=== PATIENT | female | born 1950 | race Caucasian/White ===

== ENCOUNTER → 2016-10-16 | Outpatient (REF) | payer MEDICARE, MEDICAID ==
[~2016-10-16] MED LIST: /MOM400 PO; ALLO300T2 PO; AMLO2.5T PO; CITA40TA PO; DOCU10ELUD PO; NIFE15CA PO; OMEP20CA3 PO; TYLE325T5 PO; VITA200015 PO; Wellbutrin PO; [UNRECOGNIZED DRUG - OTHER] PO
[2016-10-16 12:47] LABS: ALBUMIN 3.5 GM/DL (3.2-5.2); ALBUMIN/GLOBULIN RATIO 0.9 (1.00-1.93); BILIRUBIN,TOTAL 0.6 MG/DL (0.2-1.0); CALCIUM LEVEL 8.7 MG/DL (8.8-10.2); CREATININE FOR GFR 1.63 MG/DL (0.55-1.02); FREE T4 1.17 NG/DL (0.76-1.46); GLOMERULAR FILTRATION RATE 33.7 (>45); POTASSIUM SERUM 4.4 MEQ/L (3.5-5.1); TOTAL PROTEIN 7.4 GM/DL (6.4-8.2)
== END ==
LOC: M SFHCPLAZ 09:19
PROVIDERS: ATTEND Nurse Practitioner Family
DX: E11.9 Type 2 diabetes mellitus without complications (principal); E03.9 Hypothyroidism, unspecified

== ENCOUNTER → 2016-10-16 | Outpatient (REF) | payer MEDICARE, MEDICAID ==
[2016-10-16 12:53] LABS: BASO % 0.2 % (0.0-1.0); EOS # 0.1 K/mm3 (0.0-0.50); EOS % 2.1 % (0.0-3.0); LARGE UNSTAINED CELL # 0.1 K/mm3 (0.0-0.4); LARGE UNSTAINED CELL % 1.6 % (0.0-4.0); LYMPH # 1.1 K/mm3 (1.5-4.5); LYMPH % 24.9 % (24.0-44.0); MEAN CORPUSCULAR HEMOGLOBIN 32.1 pg (27.0-33.0); MEAN CORPUSCULAR HGB CONC 33.8 g/dl (32.0-36.5); MEAN CORPUSCULAR VOLUME 94.9 fl (80.0-96.0); MONO # 0.2 K/mm3 (0.0-0.8); MONO % 5.2 % (0.0-5.0); NEUTROPHILS # 2.9 K/mm3 (1.8-7.7); PLATELET COUNT, AUTOMATED 115 k/mm3 (150-450); RED CELL DISTRIBUTION WIDTH 12.9 % (11.5-14.5); WHITE BLOOD COUNT 4.4 K/mm3 (4.0-10.0)
[2016-10-16 13:02] LABS: ALBUMIN 3.5 GM/DL (3.2-5.2); CREATININE FOR GFR 1.69 MG/DL (0.55-1.02); GLOMERULAR FILTRATION RATE 32.3 (>45); MAGNESIUM LEVEL 2.2 MG/DL (1.8-2.4); PHOSPHORUS LEVEL 2.1 MG/DL (2.5-4.9); POTASSIUM SERUM 4.7 MEQ/L (3.5-5.1); URIC ACID 9.3 MG/DL (2.6-6.0)
== END ==
LOC: M LABDRAWP 12:17
PROVIDERS: ATTEND Nurse Practitioner Family
DX: N18.3 Chronic kidney disease, stage 3 (moderate) (principal); N25.81 Secondary hyperparathyroidism of renal origin; E83.42 Hypomagnesemia; D63.1 Anemia in chronic kidney disease; M10.9 Gout, unspecified

== ENCOUNTER → 2016-10-30 | Outpatient (CLI) | payer MEDICARE ==
--- NOTE | 2016-10-30 11:03 | REP ---
LIVER ULTRASOUND: 10/30/[address] abdomen pelvis without contrast 06/25/2014. CLINICAL HISTORY: Elevated LFTs. Sonographic evaluation of the liver shows a somewhat heterogeneous coarse echotexture throughout. There is no discrete hepatic mass, intrahepatic biliary dilatation nor adjacent ascites. The gallbladder measures 9.1 x 3 x 3.4 cm, has a wall thickness borderline at 2.9 cm. However, there is a mobile, shadowing stone present which moves to the dependent portion of the gallbladder or its neck on every image. It measures up to 1.7 cm. Common duct is 2.6 mm and is without a filling defect or dilatation. Limited view of the pancreas due to gas shadowing. The right kidney measures 8.8 x 4.4 x 3.3 cm without hydronephrosis or cortical thinning and overall atrophy noted as on CT over 2 years ago. IMPRESSION: 1. Cholelithiasis with a mobile 1.7 cm calcified gallstone. Wall thickness up to 2.9 mm, but no pericholecystic fluid. No sonographic Marquez sign. 2. The liver is mildly heterogeneous in echotexture throughout with coarsened appearance of the parenchymal echoes suggested some underlying chronic liver disease. 3. No intrahepatic biliary dilatation, common duct dilatation with its diameter, maximum 2.6 in the dawn hepatis. 4. Limited evaluation of the pancreas with pancreatic duct 1.7 mm and normal. The right kidney shows atrophy in overall length and cortical thickness. This is as on CT over 2 years ago.
== END ==
LOC: M WHC 09:29
PROVIDERS: ATTEND Nurse Practitioner Family
DX: R74.8 Abnormal levels of other serum enzymes (principal)

== ENCOUNTER → 2017-03-26 | Outpatient (CLI) | payer MEDICARE, MEDICAID ==
[2017-03-26 13:50] LABS: MEAN CORPUSCULAR HEMOGLOBIN 32.7 pg (27.0-33.0); MEAN CORPUSCULAR HGB CONC 32.4 g/dl (32.0-36.5); MEAN CORPUSCULAR VOLUME 101.1 fl (80.0-96.0); RED CELL DISTRIBUTION WIDTH 14.2 % (11.5-14.5)
[2017-03-26 14:01] LABS: ALBUMIN 3.7 GM/DL (3.2-5.2); CALCIUM LEVEL 9.2 MG/DL (8.8-10.2); CREATININE FOR GFR 1.91 MG/DL (0.55-1.02); GLOMERULAR FILTRATION RATE 28.1 (>45); PHOSPHORUS LEVEL 3.7 MG/DL (2.5-4.9); POTASSIUM SERUM 4.9 MEQ/L (3.5-5.1); URIC ACID 11.8 MG/DL (2.6-6.0)
== END ==
LOC: M WUC 09:10
PROVIDERS: ATTEND Internal Medicine Nephrology
DX: N18.3 Chronic kidney disease, stage 3 (moderate) (principal); N20.0 Calculus of kidney; M10.9 Gout, unspecified; E83.42 Hypomagnesemia; N25.81 Secondary hyperparathyroidism of renal origin

== ENCOUNTER → 2017-03-29 | Outpatient (CLI) | payer MEDICARE, MEDICAID ==
--- NOTE | 2017-03-29 15:18 | REP ---
CHEST X-RAY: Two views. HISTORY: Short of breath and low back pain. Comparison chest x-ray November 08, 2015. FINDINGS: There is an old healed fracture of the right posterior 5th rib unchanged. There are degenerative changes in the thoracic spine. The lungs are well inflated and clear. The pleural angles are sharp. Heart size is normal. Pulmonary vasculature is not increased. IMPRESSION: Degenerative changes in the thoracic spine. Otherwise no acute disease. Signed by Mani Bajwa MD 03/29/2017 04:25 P
--- NOTE | 2017-03-30 15:53 | REP ---
Lumbar spine series: Five views. History: Lumbago with sciatica left-side. Comparison study January 05, 2016. Findings: Lumbar vertebral body heights are preserved. Alignment is normal. There is exuberant osteophyte formation diffusely in the lumbar spine unchanged from the January 24, 2016 prior studies. These osteophytes are most pronounced at L4-5 and L3-4. There is mild disc space narrowing at L4-5. Sacrum and SI joints are intact. There is some sclerosis and abutment at the spinous processes between L4 and L5 and L3 and L4. This is unchanged. There is facet osteoarthritic hypertrophy at L4-5 and to some degree L3-4. Psoas margins are symmetric. Impression: Diffuse degenerative disc disease moderate in degree. Abutment of the spinous processes at L3-4 and L4-5 also noted. Signed by Mani Bajwa MD 03/30/2017 04:59 P
== END ==
LOC: M SMT 14:08
PROVIDERS: ATTEND Nurse Practitioner Family
DX: R06.02 Shortness of breath (principal); M51.34 Other intervertebral disc degeneration, thoracic region
CPT/HCPCS: 71020; 72110; 87070; 87077; 87186; G0463

== ENCOUNTER → 2017-04-17 | Outpatient (REF) | payer MEDICARE, MEDICAID ==
[2017-04-17 11:54] LABS: ALBUMIN 3.8 GM/DL (3.2-5.2); ALBUMIN/GLOBULIN RATIO 0.97 (1.00-1.93); BILIRUBIN,TOTAL 1.2 MG/DL (0.2-1.0); CALCIUM LEVEL 9.6 MG/DL (8.8-10.2); CREATININE FOR GFR 2.08 MG/DL (0.55-1.02); FREE T4 1.21 NG/DL (0.76-1.46); GLOMERULAR FILTRATION RATE 25.4 (>45); TOTAL PROTEIN 7.7 GM/DL (6.4-8.2)
[2017-04-17 11:55] LABS: POTASSIUM SERUM 5.3 MEQ/L (3.5-5.1)
== END ==
LOC: M SFHCPLAZ 08:27
PROVIDERS: ATTEND Nurse Practitioner Family
DX: E11.9 Type 2 diabetes mellitus without complications (principal); E03.9 Hypothyroidism, unspecified; E78.2 Mixed hyperlipidemia
CPT/HCPCS: 36415; 80053; 80061; 82043; 83036; 84439; 84443; G0463

== ENCOUNTER → 2017-06-25 | Outpatient (CLI) | payer MEDICARE, MEDICAID ==
[2017-06-25 09:50] LABS: BASO % 0.7 % (0.0-1.0); EOS # 0.2 10^3/uL (0.0-0.50); IMMATURE GRANULOCYTE % 0.4 % (0-0); LYMPH # 1.6 10^3/uL (1.5-4.5); LYMPH % 29.9 % (24.0-44.0); MEAN CORPUSCULAR HEMOGLOBIN 32.2 pg (27.0-33.0); MEAN CORPUSCULAR HGB CONC 32.2 g/dl (32.0-36.5); MEAN CORPUSCULAR VOLUME 100.3 fl (80.0-96.0); MONO # 0.4 10^3/uL (0.0-0.8); MONO % 7.8 % (0.0-5.0); NEUTROPHILS # 3.1 10^3/uL (1.8-7.7); NEUTROPHILS % 58.2 % (36.0-66.0); PLATELET COUNT, AUTOMATED 125 10^3/uL (150-450); RED CELL DISTRIBUTION WIDTH 14.3 % (11.5-14.5); WHITE BLOOD COUNT 5.4 10^3/uL (4.0-10.0)
[2017-06-25 10:33] LABS: ALBUMIN 3.7 GM/DL (3.2-5.2); CALCIUM LEVEL 9.8 MG/DL (8.8-10.2); CREATININE FOR GFR 2.19 MG/DL (0.55-1.02); GLOMERULAR FILTRATION RATE 23.9 (>45); MAGNESIUM LEVEL 1.8 MG/DL (1.8-2.4); PHOSPHORUS LEVEL 3.7 MG/DL (2.5-4.9); POTASSIUM SERUM 4.2 MEQ/L (3.5-5.1)
== END ==
LOC: M LAB 09:02
PROVIDERS: ATTEND Internal Medicine Nephrology
DX: N18.3 Chronic kidney disease, stage 3 (moderate) (principal)

== ENCOUNTER → 2017-07-09 | Outpatient (CLI) | payer MEDICARE, MEDICAID ==
--- NOTE | 2017-07-10 07:45 | REP ---
RENAL ULTRASOUND: CLINICAL: Chronic renal disease, stage IV. TECHNIQUE: Real-time grayscale ultrasound examination using curved array transducer. FINDINGS: The kidneys are normal in reniform shape with increased parenchymal echogenicity but no evidence for hydronephrosis, nephrolithiasis, or renal mass lesion. The right kidney measures 8.5 x 5.0 x 3.6 cm and includes increased central sinus fat consistent with chronic medical renal disease. The left kidney measures 13.1 x 7.2 x 5.4 cm with a 4.1 x 3.0 x 2.0 cm lower pole simple cyst. The bladder is unremarkable as visualized. IMPRESSION: Evidence for chronic medical renal disease including asymmetric atrophy to the right kidney and 4 cm simple left renal cyst. Signed by Joshua Escalante MD 07/13/2017 07:08 A
== END ==
LOC: M RAD 08:11
PROVIDERS: ATTEND Internal Medicine Nephrology
DX: N18.4 Chronic kidney disease, stage 4 (severe) (principal)

== ENCOUNTER → 2017-07-17 | Outpatient (REF) | payer MEDICARE, MEDICAID ==
[2017-07-17 12:57] LABS: ALBUMIN 3.5 GM/DL (3.2-5.2); ALBUMIN/GLOBULIN RATIO 0.88 (1.00-1.93); BILIRUBIN,TOTAL 0.8 MG/DL (0.2-1.0); CALCIUM LEVEL 9.5 MG/DL (8.8-10.2); CREATININE FOR GFR 1.97 MG/DL (0.55-1.02); FREE T4 1.21 NG/DL (0.76-1.46); POTASSIUM SERUM 5.1 MEQ/L (3.5-5.1); TOTAL PROTEIN 7.5 GM/DL (6.4-8.2)
== END ==
LOC: M SFHCPLAZ 08:14
PROVIDERS: ATTEND Nurse Practitioner Family
DX: E03.9 Hypothyroidism, unspecified (principal); E11.9 Type 2 diabetes mellitus without complications; E78.2 Mixed hyperlipidemia

== ENCOUNTER → 2017-08-03 | Outpatient (CLI) | payer MEDICARE, MEDICAID | LOC: M WHC 09:32 | DX: Z12.31 Encounter for screening mammogram for malignant neoplasm of breast (principal); Z78.0 Asymptomatic menopausal state; Z80.3 Family history of malignant neoplasm of breast | CPT/HCPCS: G0202 ==

== ENCOUNTER → 2017-09-05 | Outpatient (CLI) | payer MEDICARE, MEDICAID ==
[2017-09-05 11:05] LABS: APPEARANCE, URINE MANUAL CLEAR (CLEAR); COLOR, URINE MANUAL LT YELLOW (YELLOW)
[2017-09-05 11:06] LABS: BILIRUBIN, URINE MANUAL NEGATIVE (NEGATIVE); BLOOD URINE MANUAL NEGATIVE (NEGATIVE); GLUCOSE, URINE (UA) MANUAL NEGATIVE (NEGATIVE); KETONE, URINE MANUAL NEGATIVE (NEGATIVE); LEUKOCYTE ESTERASE, URINE MAN NEGATIVE (NEGATIVE); MICROSCOPIC INDICATED? MAN NO (NO); NITRITE, URINE MANUAL NEGATIVE (NEGATIVE); PROTEIN, URINE MANUAL NEGATIVE (NEGATIVE); UROBILINOGEN, URINE MANUAL NORMAL (NORMAL)
[2017-09-05 11:11] LABS: BASO % 0.8 % (0.0-1.0); EOS # 0.1 10^3/uL (0.0-0.50); EOS % 1.5 % (0.0-3.0); HEMATOCRIT 40.4 % (36.0-47.0); IMMATURE GRANULOCYTE % 0.2 % (0-0); LYMPH # 1.6 10^3/uL (1.5-4.5); LYMPH % 30.7 % (24.0-44.0); MEAN CORPUSCULAR HEMOGLOBIN 31.9 pg (27.0-33.0); MEAN CORPUSCULAR HGB CONC 32.2 g/dl (32.0-36.5); MONO # 0.4 10^3/uL (0.0-0.8); MONO % 8.1 % (0.0-5.0); NEUTROPHILS # 3.1 10^3/uL (1.8-7.7); NEUTROPHILS % 58.7 % (36.0-66.0); PLATELET COUNT, AUTOMATED 108 10^3/uL (150-450); RED BLOOD COUNT 4.08 10^6/uL (4.00-5.40); RED CELL DISTRIBUTION WIDTH 13.5 % (11.5-14.5); WHITE BLOOD COUNT 5.2 10^3/uL (4.0-10.0)
[2017-09-05 11:30] LABS: ALBUMIN 3.8 GM/DL (3.2-5.2); ANION GAP 7 MEQ/L (8-16); BLOOD UREA NITROGEN 28 MG/DL (7-18); CALCIUM LEVEL 9.7 MG/DL (8.8-10.2); CARBON DIOXIDE LEVEL 30 MEQ/L (21-32); CHLORIDE LEVEL 106 MEQ/L (98-107); CREATININE FOR GFR 2.01 MG/DL (0.55-1.30); GLOMERULAR FILTRATION RATE 26.4 (>45); GLUCOSE, FASTING 148 MG/DL (70-100); PHOSPHORUS LEVEL 3.1 MG/DL (2.5-4.9); POTASSIUM SERUM 4.8 MEQ/L (3.5-5.1); SODIUM LEVEL 143 MEQ/L (136-145); URIC ACID 8.7 MG/DL (2.6-6.0)
[2017-09-05 11:36] LABS: PTH INTACT 70.9 PG/ML (14.0-72.0)
== END ==
LOC: M LAB 10:17
DX: N18.4 Chronic kidney disease, stage 4 (severe) (principal); M10.9 Gout, unspecified
CPT/HCPCS: 84550

== ENCOUNTER → 2017-10-19 | Outpatient (REF) | payer MEDICARE, MEDICAID ==
[2017-10-19 11:14] LABS: ALBUMIN 3.7 GM/DL (3.2-5.2); ALBUMIN/GLOBULIN RATIO 0.95 (1.00-1.93); ALKALINE PHOSPHATASE 77 U/L (45-117); ALT/SGPT 32 U/L (12-78); ANION GAP 10 MEQ/L (8-16); AST/SGOT 33 U/L (7-37); BLOOD UREA NITROGEN 41 MG/DL (7-18); CALCIUM LEVEL 9.2 MG/DL (8.8-10.2); CARBON DIOXIDE LEVEL 28 MEQ/L (21-32); CHLORIDE LEVEL 106 MEQ/L (98-107); CREATININE FOR GFR 1.86 MG/DL (0.55-1.30); GLOMERULAR FILTRATION RATE 28.9 (>45); GLUCOSE, FASTING 151 MG/DL (70-100); SODIUM LEVEL 144 MEQ/L (136-145); TOTAL PROTEIN 7.6 GM/DL (6.4-8.2)
[2017-10-19 11:29] LABS: CREATININE, URINE 72.4 MG/DL; MAU/CREAT RATIO 225.1 MCG/MG (0.0-30.0)
[2017-10-19 11:30] LABS: ESTIMATED AVERAGE GLUCOSE 146 MG/DL (60-110); HEMOGLOBIN A1c 6.7 %
== END ==
LOC: M SFHCPLAZ 08:42
DX: E03.9 Hypothyroidism, unspecified (principal); E11.9 Type 2 diabetes mellitus without complications
CPT/HCPCS: 84443

== ENCOUNTER → 2017-12-11 | Outpatient (CLI) | payer MEDICARE, MEDICAID ==
[2017-12-11 11:21] LABS: APPEARANCE, URINE CLEAR (CLEAR); BACTERIA, URINE AUTO NEGATIVE (NEGATIVE); BILIRUBIN, URINE AUTO NEGATIVE (NEGATIVE); BLOOD, URINE BLOOD NEGATIVE (NEGATIVE); COLOR, URINE YELLOW (YELLOW); GLUCOSE, URINE (UA) AUTO NEGATIVE (NEGATIVE); KETONE, URINE AUTO NEGATIVE (NEGATIVE); LEUKOCYTE ESTERASE, URINE AUTO NEGATIVE (NEGATIVE); NITRITE, URINE AUTO NEGATIVE (NEGATIVE); PROTEIN, URINE AUTO 2+ mg/dL (NEGATIVE); RBC, URINE AUTO 3 /HPF (0-3); SPECIFIC GRAVITY URINE AUTO 1.013 (1.002-1.035); SQUAMOUS EPITHELIAL CELL UR AU 1 /HPF (0-6); UROBILINOGEN, URINE AUTO 0.2 mg/dL (0.0-2.0); WBC, URINE AUTO 1 /HPF (0-3)
[2017-12-11 11:25] LABS: ALBUMIN 3.5 GM/DL (3.2-5.2); ANION GAP 6 MEQ/L (8-16); BLOOD UREA NITROGEN 28 MG/DL (7-18); CALCIUM LEVEL 9.6 MG/DL (8.8-10.2); CARBON DIOXIDE LEVEL 27 MEQ/L (21-32); CHLORIDE LEVEL 110 MEQ/L (98-107); CREATININE FOR GFR 1.67 MG/DL (0.55-1.30); GLOMERULAR FILTRATION RATE 32.7 (>45); GLUCOSE, FASTING 182 MG/DL (70-100); PHOSPHORUS LEVEL 2.8 MG/DL (2.5-4.9); POTASSIUM SERUM 4.8 MEQ/L (3.5-5.1); SODIUM LEVEL 143 MEQ/L (136-145); URIC ACID 6.7 MG/DL (2.6-6.0)
[2017-12-11 11:35] LABS: TOTAL 25(OH) VITAMIN D 25.6 NG/ML (30.0-100.0)
[2017-12-11 11:36] LABS: PTH INTACT 49.3 PG/ML (18.5-88.0)
== END ==
LOC: M LAB 10:35
DX: N18.4 Chronic kidney disease, stage 4 (severe) (principal)
CPT/HCPCS: 84550

== ENCOUNTER → 2018-01-28 | Outpatient (REF) | payer MEDICARE, MEDICAID ==
[2018-01-28 13:35] LABS: BLOOD UREA NITROGEN 50 MG/DL (7-18)
[2018-01-28 13:35] LABS: CREATININE FOR GFR 2.04 MG/DL (0.55-1.30); GLOMERULAR FILTRATION RATE 25.9 (>45)
== END ==
LOC: M SFHCWAGY 08:35
DX: Z91.89 Other specified personal risk factors, not elsewhere classified (principal)
CPT/HCPCS: 82565

== ENCOUNTER → 2018-02-15 | Outpatient (REF) | payer MEDICARE, MEDICAID ==
[2018-02-15 12:18] LABS: HEMATOCRIT 35.9 % (36.0-47.0); HEMOGLOBIN 11.7 g/dl (12.0-15.5); MEAN CORPUSCULAR HEMOGLOBIN 32.7 pg (27.0-33.0); MEAN CORPUSCULAR HGB CONC 32.6 g/dl (32.0-36.5); MEAN CORPUSCULAR VOLUME 100.3 fl (80.0-96.0); RED BLOOD COUNT 3.58 10^6/uL (4.00-5.40); WHITE BLOOD COUNT 4.1 10^3/uL (4.0-10.0)
[2018-02-15 12:45] LABS: IMMATURE PLATELET FRACTION % 3.7 % (0.0-9.6); PLATELET COUNT, AUTOMATED 72 10^3/uL (150-450)
[2018-02-15 13:06] LABS: ALBUMIN 3.4 GM/DL (3.2-5.2); ALBUMIN/GLOBULIN RATIO 0.94 (1.00-1.93); ALKALINE PHOSPHATASE 77 U/L (45-117); ALT/SGPT 35 U/L (12-78); ANION GAP 9 MEQ/L (8-16); AST/SGOT 23 U/L (7-37); BILIRUBIN,TOTAL 0.8 MG/DL (0.2-1.0); BLOOD UREA NITROGEN 45 MG/DL (7-18); CALCIUM LEVEL 9.1 MG/DL (8.8-10.2); CARBON DIOXIDE LEVEL 30 MEQ/L (21-32); CHLORIDE LEVEL 107 MEQ/L (98-107); CHOLESTEROL LEVEL 168 MG/DL (<200); CHOLESTEROL RISK RATIO 2.024 (<5); CREATININE FOR GFR 1.94 MG/DL (0.55-1.30); FREE T4 1.53 NG/DL (0.76-1.46); GLOMERULAR FILTRATION RATE 27.5 (>45); GLUCOSE, FASTING 139 MG/DL (70-100); HDL CHOLESTEROL 83 MG/DL (>40); LDL CHOLESTEROL 64.2 MG/DL (<100); NON-HDL-C 85 MG/DL; PHOSPHORUS LEVEL 3.1 MG/DL (2.5-4.9); SODIUM LEVEL 146 MEQ/L (136-145); THYROID STIMULATING HORMONE 0.096 uIU/ML (0.358-3.740); TRIGLYCERIDES LEVEL 104 MG/DL (<150)
[2018-02-15 13:07] LABS: ESTIMATED AVERAGE GLUCOSE 157 MG/DL (60-110); HEMOGLOBIN A1c 7.1 %
== END ==
LOC: M SFHCPLAZ 09:30
DX: E11.9 Type 2 diabetes mellitus without complications (principal); E03.9 Hypothyroidism, unspecified; E78.2 Mixed hyperlipidemia; N18.3 Chronic kidney disease, stage 3 (moderate)
CPT/HCPCS: 84443

== ENCOUNTER → 2018-02-15 | Outpatient (REF) | payer MEDICARE, MEDICAID ==
[2018-02-15 12:38] LABS: APPEARANCE, URINE CLEAR (CLEAR); BACTERIA, URINE AUTO NEGATIVE (NEGATIVE); BILIRUBIN, URINE AUTO NEGATIVE (NEGATIVE); BLOOD, URINE BLOOD NEGATIVE (NEGATIVE); COLOR, URINE YELLOW (YELLOW); GLUCOSE, URINE (UA) AUTO NEGATIVE (NEGATIVE); KETONE, URINE AUTO NEGATIVE (NEGATIVE); LEUKOCYTE ESTERASE, URINE AUTO NEGATIVE (NEGATIVE); NITRITE, URINE AUTO NEGATIVE (NEGATIVE); PROTEIN, URINE AUTO 1+ mg/dL (NEGATIVE); RBC, URINE AUTO 1 /HPF (0-3); SPECIFIC GRAVITY URINE AUTO 1.012 (1.002-1.035); SQUAMOUS EPITHELIAL CELL UR AU 1 /HPF (0-6); UROBILINOGEN, URINE AUTO 0.2 mg/dL (0.0-2.0); WBC, URINE AUTO 1 /HPF (0-3)
[2018-02-15 20:24] LABS: ALBUMIN 3.5 GM/DL (3.2-5.2); ANION GAP 10 MEQ/L (8-16); BLOOD UREA NITROGEN 48 MG/DL (7-18); CALCIUM LEVEL 8.9 MG/DL (8.8-10.2); CARBON DIOXIDE LEVEL 28 MEQ/L (21-32); CHLORIDE LEVEL 108 MEQ/L (98-107); CREATININE FOR GFR 1.99 MG/DL (0.55-1.30); GLOMERULAR FILTRATION RATE 26.7 (>45); GLUCOSE, FASTING 142 MG/DL (70-100); PHOSPHORUS LEVEL 3.1 MG/DL (2.5-4.9); POTASSIUM SERUM 5.1 MEQ/L (3.5-5.1); SODIUM LEVEL 146 MEQ/L (136-145)
[2018-02-15 20:29] LABS: HEMATOCRIT 36.4 % (36.0-47.0); HEMOGLOBIN 11.7 g/dl (12.0-15.5); MEAN CORPUSCULAR HEMOGLOBIN 32.6 pg (27.0-33.0); MEAN CORPUSCULAR HGB CONC 32.1 g/dl (32.0-36.5); MEAN CORPUSCULAR VOLUME 101.4 fl (80.0-96.0); RED BLOOD COUNT 3.59 10^6/uL (4.00-5.40); RED CELL DISTRIBUTION WIDTH 14.2 % (11.5-14.5); WHITE BLOOD COUNT 4.2 10^3/uL (4.0-10.0)
[2018-02-15 20:31] LABS: PLATELET COUNT, AUTOMATED 79 10^3/uL (150-450)
== END ==
LOC: M LABDRAWP 12:13
DX: N18.3 Chronic kidney disease, stage 3 (moderate) (principal)

== ENCOUNTER → 2018-04-03 | Outpatient (REF) | payer MEDICARE, MEDICAID ==
[2018-04-03 13:12] LABS: FREE T4 1.29 NG/DL (0.76-1.46); THYROID STIMULATING HORMONE 0.483 uIU/ML (0.358-3.740)
== END ==
LOC: M SFHCPLAZ 09:15
DX: E03.9 Hypothyroidism, unspecified (principal)
CPT/HCPCS: 84443

== ENCOUNTER → 2018-05-29 | Outpatient (CLI) | payer MEDICARE, MEDICAID ==
[2018-05-29 13:29] LABS: BASO % 0.4 % (0.0-1.0); EOS # 0.1 10^3/uL (0.0-0.50); EOS % 1.9 % (0.0-3.0); HEMATOCRIT 38.7 % (36.0-47.0); HEMOGLOBIN 12.6 g/dl (12.0-15.5); IMMATURE GRANULOCYTE % 0.2 % (0-3.0); LYMPH # 1.5 10^3/uL (1.5-4.5); LYMPH % 28.8 % (24.0-44.0); MEAN CORPUSCULAR HEMOGLOBIN 32.8 pg (27.0-33.0); MEAN CORPUSCULAR HGB CONC 32.6 g/dl (32.0-36.5); MEAN CORPUSCULAR VOLUME 100.8 fl (80.0-96.0); MONO # 0.5 10^3/uL (0.0-0.8); MONO % 8.9 % (0.0-5.0); NEUTROPHILS # 3.1 10^3/uL (1.8-7.7); NEUTROPHILS % 59.8 % (36.0-66.0); RED BLOOD COUNT 3.84 10^6/uL (4.00-5.40); RED CELL DISTRIBUTION WIDTH 14.4 % (11.5-14.5); WHITE BLOOD COUNT 5.1 10^3/uL (4.0-10.0)
[2018-05-29 13:51] LABS: ALBUMIN 3.8 GM/DL (3.2-5.2); ANION GAP 9 MEQ/L (8-16); BLOOD UREA NITROGEN 55 MG/DL (7-18); CALCIUM LEVEL 9.4 MG/DL (8.8-10.2); CARBON DIOXIDE LEVEL 26 MEQ/L (21-32); CHLORIDE LEVEL 111 MEQ/L (98-107); CREATININE FOR GFR 1.82 MG/DL (0.55-1.30); GLOMERULAR FILTRATION RATE 29.6 (>45); GLUCOSE, FASTING 144 MG/DL (70-100); MAGNESIUM LEVEL 1.9 MG/DL (1.8-2.4); PHOSPHORUS LEVEL 3.8 MG/DL (2.5-4.9); POTASSIUM SERUM 4.8 MEQ/L (3.5-5.1); SODIUM LEVEL 146 MEQ/L (136-145); URIC ACID 6.8 MG/DL (2.6-6.0)
[2018-05-29 14:00] LABS: APPEARANCE, URINE CLEAR (CLEAR); BACTERIA, URINE AUTO NEGATIVE (NEGATIVE); BILIRUBIN, URINE AUTO NEGATIVE (NEGATIVE); BLOOD, URINE BLOOD NEGATIVE (NEGATIVE); COLOR, URINE YELLOW (YELLOW); GLUCOSE, URINE (UA) AUTO NEGATIVE (NEGATIVE); GRANULAR CAST, URINE AUTO 3 /LPF; KETONE, URINE AUTO NEGATIVE (NEGATIVE); LEUKOCYTE ESTERASE, URINE AUTO NEGATIVE (NEGATIVE); NITRITE, URINE AUTO NEGATIVE (NEGATIVE); PROTEIN, URINE AUTO 2+ mg/dL (NEGATIVE); RBC, URINE AUTO 0 /HPF (0-3); SPECIFIC GRAVITY URINE AUTO 1.014 (1.002-1.035); SQUAMOUS EPITHELIAL CELL UR AU 0 /HPF (0-6); UROBILINOGEN, URINE AUTO 0.2 mg/dL (0.0-2.0); WBC, URINE AUTO 0 /HPF (0-3)
[2018-05-29 14:19] LABS: PLATELET COUNT, AUTOMATED 85 10^3/uL (150-450)
[2018-05-29 14:20] LABS: IMMATURE PLATELET FRACTION % 2.8 % (0.0-9.6)
== END ==
LOC: M WUC 10:34
DX: N18.4 Chronic kidney disease, stage 4 (severe) (principal); N20.0 Calculus of kidney; N25.81 Secondary hyperparathyroidism of renal origin
CPT/HCPCS: 83735

== ENCOUNTER → 2018-07-04 | Outpatient (REF) | payer MEDICARE, MEDICAID ==
[2018-07-04 13:26] LABS: ANION GAP 10 MEQ/L (8-16); BLOOD UREA NITROGEN 57 MG/DL (7-18); CALCIUM LEVEL 9.1 MG/DL (8.8-10.2); CARBON DIOXIDE LEVEL 28 MEQ/L (21-32); CHLORIDE LEVEL 107 MEQ/L (98-107); CREATININE FOR GFR 2.17 MG/DL (0.55-1.30); FREE T4 1.42 NG/DL (0.76-1.46); GLOMERULAR FILTRATION RATE 24.1 (>45); GLUCOSE, FASTING 156 MG/DL (70-100); POTASSIUM SERUM 4.4 MEQ/L (3.5-5.1); SODIUM LEVEL 145 MEQ/L (136-145); THYROID STIMULATING HORMONE 0.948 uIU/ML (0.358-3.740)
[2018-07-04 15:26] LABS: ESTIMATED AVERAGE GLUCOSE 137 MG/DL (60-110); HEMOGLOBIN A1c 6.4 %
== END ==
LOC: M SFHCPLAZ 08:07
DX: E03.9 Hypothyroidism, unspecified (principal); E11.9 Type 2 diabetes mellitus without complications
CPT/HCPCS: 84443

== ENCOUNTER → 2018-09-02 | Outpatient (CLI) | payer MEDICARE, MEDICAID ==
[2018-09-02 06:41] LABS: BILIRUBIN, URINE MANUAL NEGATIVE (NEGATIVE); COLOR, URINE MANUAL YELLOW (YELLOW); GLUCOSE, URINE (UA) MANUAL NEGATIVE (NEGATIVE); KETONE, URINE MANUAL NEGATIVE (NEGATIVE); PROTEIN, URINE MANUAL TRACE mg/dL (NEGATIVE); UROBILINOGEN, URINE MANUAL NORMAL (NORMAL)
[2018-09-02 06:42] LABS: BLOOD URINE MANUAL NEGATIVE (NEGATIVE); LEUKOCYTE ESTERASE, URINE MAN NEGATIVE (NEGATIVE); NITRITE, URINE MANUAL NEGATIVE (NEGATIVE)
[2018-09-02 06:47] LABS: BASO % 0.3 % (0.0-1.0); EOS # 0.1 10^3/uL (0.0-0.50); EOS % 1.6 % (0.0-3.0); HEMATOCRIT 34.3 % (36.0-47.0); HEMOGLOBIN 11.2 g/dl (12.0-15.5); LYMPH # 1.8 10^3/uL (1.5-4.5); LYMPH % 26.2 % (24.0-44.0); MEAN CORPUSCULAR HEMOGLOBIN 33.3 pg (27.0-33.0); MEAN CORPUSCULAR HGB CONC 32.7 g/dl (32.0-36.5); MEAN CORPUSCULAR VOLUME 102.1 fl (80.0-96.0); MONO # 0.5 10^3/uL (0.0-0.8); MONO % 7.4 % (0.0-5.0); NEUTROPHILS # 4.3 10^3/uL (1.8-7.7); NEUTROPHILS % 64.2 % (36.0-66.0); PLATELET COUNT, AUTOMATED 111 10^3/uL (150-450); RED BLOOD COUNT 3.36 10^6/uL (4.00-5.40); WHITE BLOOD COUNT 6.7 10^3/uL (4.0-10.0)
[2018-09-02 06:55] LABS: BACTERIA, URINE SMALL AMOUNT; HYALINE CAST, URINE NONE SEEN /lpf (0-1); RBC, URINE NONE SEEN /hpf (0-3); SQUAMOUS EPITHELIAL CELL URINE MOD AMOUNT /hpf (SMALL AMT); WBC, URINE 0-1 /hpf (0-3)
[2018-09-02 07:09] LABS: ALBUMIN 3.7 GM/DL (3.2-5.2); CALCIUM LEVEL 9.1 MG/DL (8.8-10.2); CREATININE FOR GFR 1.9 MG/DL (0.55-1.30); GLOMERULAR FILTRATION RATE 28.1 (>45); PHOSPHORUS LEVEL 2.8 MG/DL (2.5-4.9); POTASSIUM SERUM 4.4 MEQ/L (3.5-5.1); URIC ACID 5.3 MG/DL (2.6-6.0)
[2018-09-02 09:43] LABS: PTH INTACT 177.1 PG/ML (18.5-88.0)
[2018-09-03 10:27] LABS: APPEARANCE, URINE MANUAL CLEAR (CLEAR)
[2018-09-03 10:29] LABS: MAGNESIUM LEVEL 1.7 MG/DL (1.8-2.4)
== END ==
LOC: M LAB 06:12
PROVIDERS: ATTEND Internal Medicine Nephrology
DX: N18.4 Chronic kidney disease, stage 4 (severe) (principal); N25.81 Secondary hyperparathyroidism of renal origin; N20.0 Calculus of kidney

== ENCOUNTER → 2018-10-04 | Outpatient (REF) | payer MEDICARE, MEDICAID ==
[2018-10-04 11:00] LABS: ALBUMIN 3.7 GM/DL (3.2-5.2); BILIRUBIN,TOTAL 1.3 MG/DL (0.2-1.0); CALCIUM LEVEL 8.9 MG/DL (8.8-10.2); CHOLESTEROL RISK RATIO 2.617 (<5); CREATININE FOR GFR 2.57 MG/DL (0.55-1.30); FREE T4 1.67 NG/DL (0.76-1.46); GLOMERULAR FILTRATION RATE 19.8 (>45); POTASSIUM SERUM 4.4 MEQ/L (3.5-5.1); THYROID STIMULATING HORMONE 0.304 uIU/ML (0.358-3.740); TOTAL PROTEIN 7.2 GM/DL (6.4-8.2); URIC ACID 5.9 MG/DL (2.6-6.0)
[2018-10-04 11:06] LABS: MAU/CREAT RATIO 121.4 MCG/MG (0.0-30.0)
[2018-10-04 11:17] LABS: HEMOGLOBIN A1c 7.1 %
== END ==
LOC: M SFHCPLAZ 08:20
PROVIDERS: ATTEND Nurse Practitioner Family
DX: E78.2 Mixed hyperlipidemia (principal); E03.9 Hypothyroidism, unspecified; E11.22 Type 2 diabetes mellitus with diabetic chronic kidney disease; M10.9 Gout, unspecified; E55.9 Vitamin D deficiency, unspecified; N18.4 Chronic kidney disease, stage 4 (severe); N20.0 Calculus of kidney; N25.81 Secondary hyperparathyroidism of renal origin

== ENCOUNTER → 2018-10-04 | Outpatient (REF) | payer MEDICARE, MEDICAID ==
[2018-10-04 10:17] LABS: BASO % 0.4 % (0.0-1.0); EOS # 0.1 10^3/uL (0.0-0.50); EOS % 2.4 % (0.0-3.0); HEMATOCRIT 33.4 % (36.0-47.0); HEMOGLOBIN 10.9 g/dl (12.0-15.5); LYMPH # 1.8 10^3/uL (1.5-4.5); LYMPH % 32.9 % (24.0-44.0); MEAN CORPUSCULAR HEMOGLOBIN 33.4 pg (27.0-33.0); MEAN CORPUSCULAR HGB CONC 32.6 g/dl (32.0-36.5); MEAN CORPUSCULAR VOLUME 102.5 fl (80.0-96.0); MONO # 0.5 10^3/uL (0.0-0.8); MONO % 8.9 % (0.0-5.0); NEUTROPHILS # 3.1 10^3/uL (1.8-7.7); NEUTROPHILS % 55.2 % (36.0-66.0); PLATELET COUNT, AUTOMATED 104 10^3/uL (150-450); RED BLOOD COUNT 3.26 10^6/uL (4.00-5.40); WHITE BLOOD COUNT 5.5 10^3/uL (4.0-10.0)
[2018-10-04 10:19] LABS: APPEARANCE, URINE HAZY (CLEAR); BACTERIA, URINE AUTO NEGATIVE (NEGATIVE); BILIRUBIN, URINE AUTO NEGATIVE (NEGATIVE); BLOOD, URINE BLOOD NEGATIVE (NEGATIVE); COLOR, URINE YELLOW (YELLOW); GLUCOSE, URINE (UA) AUTO NEGATIVE (NEGATIVE); KETONE, URINE AUTO NEGATIVE (NEGATIVE); LEUKOCYTE ESTERASE, URINE AUTO NEGATIVE (NEGATIVE); MUCUS, URINE SMALL (NEGATIVE); NITRITE, URINE AUTO NEGATIVE (NEGATIVE); PROTEIN, URINE AUTO 1+ mg/dL (NEGATIVE); RBC, URINE AUTO 0 /HPF (0-3); SPECIFIC GRAVITY URINE AUTO 1.012 (1.002-1.035); SQUAMOUS EPITHELIAL CELL UR AU 4 /HPF (0-6); UROBILINOGEN, URINE AUTO 0.2 mg/dL (0.0-2.0); WBC, URINE AUTO 1 /HPF (0-3)
[2018-10-04 10:49] LABS: ALBUMIN 3.5 GM/DL (3.2-5.2); CREATININE FOR GFR 2.55 MG/DL (0.55-1.30); PHOSPHORUS LEVEL 3.7 MG/DL (2.5-4.9); POTASSIUM SERUM 4.4 MEQ/L (3.5-5.1)
== END ==
LOC: M LABDRAWP 08:32
PROVIDERS: ATTEND Internal Medicine Nephrology
DX: N18.4 Chronic kidney disease, stage 4 (severe) (principal); N20.0 Calculus of kidney; N25.81 Secondary hyperparathyroidism of renal origin

== ENCOUNTER → 2018-11-06 | Outpatient (CLI) | payer MEDICARE, MEDICAID ==
[~2018-11-06] MED LIST changes: -/MOM400 PO; -DOCU10ELUD PO; +DOCU5LIQ PO; +MILK10SU PO
--- NOTE | 2018-11-06 11:16 | REP ---
BILATERAL MAMMOGRAM WITH 3D TOMOSYNTHESIS: Bilateral mammography performed in the MLO and CC projections with 3D tomosynthesis. Comparison is made with prior study 08/03/2017 as well as other prior exams. There is a family history of breast cancer in sister under age 50. There has been prior benign biopsy of the left breast 02/17/2013. Tyrer-zick lifetime risk of breast cancer 29.7%. Mild scattered fibroglandular tissue is again seen bilaterally unchanged. Scattered course benign type calcifications are present. Possible clustered microcalcifications are seen in the upper outer quadrant of the right breast. IMPRESSION: BIRADS 0: BI-RADS/ACR category 0 mammogram, Incomplete: Need additional imaging evaluation and/or prior mammograms for comparison. ACR 0 incomplete. Possible clustered pleomorphic microcalcifications upper outer quadrant right breast. Recommend magnifications views to further evaluate. This mammogram was interpreted with the aid of an FDA-approved computer-aided detection system. A. Negative x-ray reports should not delay biopsy if a dominant or clinically suspicious mass is present. B. Four to eight percent of cancers are not identified by x-ray. C. Adenosis and dense breasts may obscure an underlying neoplasm. The patient states she/he had a clinical breast exam in November 2018. The patient letter being requested is M0.
== END ==
LOC: M WHC 08:59
PROVIDERS: ATTEND Nurse Practitioner Family
DX: R92.2 Inconclusive mammogram (principal); Z86.018 Personal history of other benign neoplasm; Z80.3 Family history of malignant neoplasm of breast
CPT/HCPCS: 77063; 77067; G0463

== ENCOUNTER → 2018-11-12 | Outpatient (CLI) | payer MEDICARE, MEDICAID ==
--- NOTE | 2018-11-12 16:38 | REP ---
Digital diagnostic unilateral right breast mammography with CAD: History: Screening mammography November 06, 2018 was BIRADS category zero incomplete. Diagnostic imaging was recommended regarding possible new microcalcifications. Comparison is also made with prior mammography from August 03, 2017 June 05, 2016. Positive family history breast carcinoma. Findings: Magnified focal spot compression CC, true ML, and MLO views of the right breast are obtained. These confirm the presence of a polymorphic grouping of microcalcifications in the upper outer quadrant of the right breast occupying a small area measuring only 4 mm across. No soft tissue density is seen associated with these. As they are new, they must be regarded as at least potentially suspicious. Impression: BIRADS category four suspicious right breast mammogram. Micro calcific grouping confirmed in the right breast superiorly and laterally. Stereotactic needle biopsy recommended. Marker clip placement and post marker clip placement mammography suggested. This mammogram was interpreted with the aid of an FDA-approved computer-aided detection system. The patient states she had a clinical breast exam in November 2018 The patient letter being requested is m4. This patient's estimated Tyrer-Cuzick lifetime risk assessment for the breast cancer is 29.7 %. Electronically Signed by Mani Bajwa MD 11/12/2018 08:36 P
--- NOTE | 2018-11-12 16:41 | REP ---
Digital diagnostic unilateral left breast mammography with focused left breast sonography: History: Possible spiculated lesion seen in the left upper outer quadrant on review of recent mammography. Comparison mammography November 06, 2018, August 03, 2017, and June 05, 2016. Mammographic findings: Magnified focal spot compression CC, true ML, and MLO views were obtained. On the CC projection images a spiculated area is seen and the left central breast at middle third level approximately 6 mm in diameter. This is felt to correspond with the tomographic findings recently obtained. This is not definitely observed on magnified true ML and MLO views. Given its appearance on tomography however the area must be considered suspicious. Sonographic findings: The upper outer quadrant of the left breast is scanned sonographically from 12 o'clock to 3 o'clock. Exam quality was inhibited to some degree by the breast size. Heterogeneous and background echotexture is seen. At the 1 o'clock position, 13.3 cm from the nipple, there is a 1.2 x 1.1 x 1.0 cm hypoechoic mass lesion with acoustic shadowing and internal blood flow. It appears taller than wide and is felt to correspond with the area of spiculation seen mammographically. This should be considered sonographically suspicious. Impression: BIRADS category four suspicious left breast imaging. Spiculated lesion in the superolateral left breast by both mammography and sonography. The lesion is more conspicuous sonographically than it is mammographically. Ultrasound-guided needle biopsy is recommended with marker clip placement and post marker clip placement mammography. BIRADS 4: BI-RADS/ACR category 4 mammogram. Suspicious Abnormality - biopsy should be considered. This mammogram was interpreted with the aid of an FDA-approved computer-aided detection system. The patient states she had a clinical breast exam in November 2018. The patient letter being requested is m4 This patient's estimated Tyrer-Cuzick lifetime risk assessment for the breast cancer is 29.7 %. Enhanced breast screening is recommended for patient's whose a risk assessment over 20% using annual breast MRI scanning. Electronically Signed by Mani Bajwa MD 11/12/2018 08:37 P
== END ==
LOC: M RAD 11:41
PROVIDERS: ATTEND Nurse Practitioner Family
DX: R92.8 Other abnormal and inconclusive findings on diagnostic imaging of breast (principal); N63.20 Unspecified lump in the left breast, unspecified quadrant

== ENCOUNTER → 2018-12-04 | Outpatient (CLI) | payer MEDICARE, MEDICAID ==
[2018-12-04 09:29] LABS: APPEARANCE, URINE CLEAR (CLEAR); BACTERIA, URINE AUTO NEGATIVE (NEGATIVE); BILIRUBIN, URINE AUTO NEGATIVE (NEGATIVE); BLOOD, URINE BLOOD NEGATIVE (NEGATIVE); COLOR, URINE STRAW (YELLOW); GLUCOSE, URINE (UA) AUTO NEGATIVE (NEGATIVE); KETONE, URINE AUTO NEGATIVE (NEGATIVE); LEUKOCYTE ESTERASE, URINE AUTO NEGATIVE (NEGATIVE); NITRITE, URINE AUTO NEGATIVE (NEGATIVE); PROTEIN, URINE AUTO NEGATIVE (NEGATIVE); RBC, URINE AUTO 4 /HPF (0-3); SPECIFIC GRAVITY URINE AUTO 1.009 (1.002-1.035); SQUAMOUS EPITHELIAL CELL UR AU 0 /HPF (0-6); UROBILINOGEN, URINE AUTO 0.2 mg/dL (0.0-2.0); WBC, URINE AUTO 1 /HPF (0-3)
[2018-12-04 09:59] LABS: CREATININE, URINE 42.9 MG/DL; MAU/CREAT RATIO 557.1 MCG/MG (0.0-30.0)
[2018-12-04 10:02] LABS: ALBUMIN 3.4 GM/DL (3.2-5.2); CREATININE FOR GFR 1.93 MG/DL (0.55-1.30); GLOMERULAR FILTRATION RATE 27.6 (>45); MAGNESIUM LEVEL 1.6 MG/DL (1.8-2.4); PHOSPHORUS LEVEL 3.9 MG/DL (2.5-4.9); POTASSIUM SERUM 4.4 MEQ/L (3.5-5.1)
== END ==
LOC: M LAB 08:46
PROVIDERS: ATTEND Internal Medicine Nephrology
DX: N18.4 Chronic kidney disease, stage 4 (severe) (principal); E11.22 Type 2 diabetes mellitus with diabetic chronic kidney disease

== ENCOUNTER → 2019-02-13 | Outpatient (REF) | payer MEDICARE, MEDICAID ==
[~2019-02-13] MED LIST changes: +ALLO10TA PO; +ANAS1TAB2 PO; +ATOR80TA59 PO; +CALC1CAP31 PO; +CARV3.12 PO; +CEPH500C PO; +CHOL50002 PO; +FURO20TA2 PO; +LEVO112T2 PO; +OMEP20CA4 PO; +POTA4.25 PO; +QC A650T3 PO; +TRAD5TAB PO
[2019-02-13 13:08] LABS: FREE T4 1.8 NG/DL (0.76-1.46); HEMOGLOBIN A1c 6.3 %; THYROID STIMULATING HORMONE 3.04 uIU/ML (0.358-3.740); URIC ACID 9.2 MG/DL (2.6-6.0)
== END ==
LOC: M SFHCPLAZ 08:27
PROVIDERS: ATTEND Nurse Practitioner Family
DX: E03.9 Hypothyroidism, unspecified (principal); E11.22 Type 2 diabetes mellitus with diabetic chronic kidney disease; M10.9 Gout, unspecified

== ENCOUNTER → 2019-02-28 | Outpatient (REF) | payer MEDICARE, MEDICAID ==
[2019-02-28 13:29] LABS: BASO % 0.6 % (0.0-1.0); EOS # 0.2 10^3/uL (0.0-0.50); EOS % 2.8 % (0.0-3.0); HEMATOCRIT 34.8 % (36.0-47.0); HEMOGLOBIN 11.4 g/dl (12.0-15.5); LYMPH # 1.7 10^3/uL (1.5-4.5); LYMPH % 32.3 % (24.0-44.0); MEAN CORPUSCULAR HEMOGLOBIN 32.7 pg (27.0-33.0); MEAN CORPUSCULAR HGB CONC 32.8 g/dl (32.0-36.5); MEAN CORPUSCULAR VOLUME 99.7 fl (80.0-96.0); MONO # 0.4 10^3/uL (0.0-0.8); MONO % 7.8 % (0.0-5.0); NEUTROPHILS % 56.3 % (36.0-66.0); PLATELET COUNT, AUTOMATED 118 10^3/uL (150-450); RED BLOOD COUNT 3.49 10^6/uL (4.00-5.40); WHITE BLOOD COUNT 5.4 10^3/uL (4.0-10.0)
[2019-02-28 13:34] LABS: ALBUMIN 3.4 GM/DL (3.2-5.2); CALCIUM LEVEL 9.4 MG/DL (8.8-10.2); CREATININE FOR GFR 1.95 MG/DL (0.55-1.30); GLOMERULAR FILTRATION RATE 27.2 (>45); PHOSPHORUS LEVEL 3.5 MG/DL (2.5-4.9); POTASSIUM SERUM 4.5 MEQ/L (3.5-5.1); URIC ACID 5.6 MG/DL (2.6-6.0)
[2019-02-28 13:44] LABS: PTH INTACT 95.7 PG/ML (18.5-88.0)
== END ==
LOC: M SHH 11:27
PROVIDERS: ATTEND Internal Medicine Nephrology
DX: N18.4 Chronic kidney disease, stage 4 (severe) (principal); N20.0 Calculus of kidney; N25.81 Secondary hyperparathyroidism of renal origin

== ENCOUNTER → 2019-03-20 | Outpatient (CLI) | payer MEDICARE, MEDICAID ==
--- NOTE | 2019-03-25 09:35 | RADONC ---
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 There was no evidence of lymphovascular invasion and the margins were negative. Tumor was ER/CO positive, HER2/dayne not overly expressed. ICD-10 CODE: C50.412 ECOG PERFORMANCE STATUS: 0 REFERRING PHYSICIANS: Bharati Fofana, Estelle Santos, and Gisele Bruno NP HISTORY OF PRESENT ILLNESS: The patient is [id number] and underwent a diagnostic screening mammogram, which revealed an abnormality at the 3 o'clock position of the left breast. The mammogram was obtained in November of 2018 and followed by a digital diagnostic unilateral sonogram and a suspicious left upper outer quadrant lesion was seen and confirmed. The lesion was again located between the 3 o'clock position and 12 o'clock position and measured approximately 1.2 x 1.1 x 1.0 cm. It was hypoechoic. The pathology revealed a moderately differentiated invasive carcinoma with ductal and lobular features. 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 There was no evidence of lymphovascular invasion and margins were negative. She was thusly staged a [id number] invasive carcinoma involving the left breast at the 3 o'clock position, ER/CO positive, HER2/dayne negative, not overly expressed. She did relatively well postoperatively and comes to us today to discuss the role of adjuvant radiotherapy. PAST MEDICAL HISTORY: She has a history of anxiety, depression, chronic renal disease, stage IV, colonic polyps, type 2 diabetes, elevated liver function studies, esophageal reflux, DJD, hypothyroidism, nephrolithiasis, mixed hyperlipidemia, osteopenia, post concussion syndrome, skin cancer, vitamin D deficiency. 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 ALLERGIES: TAPE, CODEINE, FEBUXOSTAT. FAMILY HISTORY OF CANCER: Her father had skin cancer and her sister had breast cancer. She has a daughter with ADD/ADHD. CURRENT MEDICATIONS: - acetaminophen 650 mg t.i.d. - allopurinol 300 mg p.o. t.i.d. - atorvastatin 80 mg p.o. daily - calcitriol 0.25 mg p.o. daily - carvedilol 3.125 mg p.o. b.i.d. - Keflex 500 mg b.i.d. - vitamin D3 5000 international units p.o. at bedtime - Lasix 20 mg p.o. daily - levothyroxine 112 mcg p.o. daily - Tradjenta 5 mg p.o. daily - omeprazole 20 mg p.o. daily - potassium citrate 15 mg daily REVIEW OF SYSTEMS: RESPIRATORY: The patient denies currently coughing, dyspnea, hemoptysis, hiccups, pleuritic pain, or wheezing. PSYCHIATRIC: The patient does complain of occasional depression and mood fluctuations as well as anxiety. She has no delusions, hallucinations. NEUROLOGIC: Denies disorientation, dizziness, gait problems, headaches, insomnia, memory loss, neuropathy, paralysis, seizure disorder, or sensory problems. She has not had any recent stroke. MUSCULOSKELETAL: She has a history of arthritis and has an occasional bone and joint pain. She has no significant muscle weakness with the exception in her lower extremities but claims to have no limitation in her range of motion. INTEGUMENTARY: Denies alopecia, blisters, bruising, dry skin, facial burning, nail problems, photosensitivity, pruritus, rash, or urticaria. HEMATOLOGIC/LYMPHATICS: Denies easy bruising or lymphadenopathy. GENITOURINARY: Denies dysuria, frequency, genital masses, hematuria, incontinence, nocturia, renal stone disease, sexual dysfunction, urgency, changes in urine color, vaginal discharge, or vaginal spotting. GASTROINTESTINAL: Denies changes in bowel habits, constipation, diarrhea, heartburn, dyspepsia, hematochezia, hematemesis, hemorrhoids, melena, GI bleeding, nausea, pain, cramping, early satiety, or vomiting. HEENT: Denies ear pain, epistaxis, esophagitis, hearing impairment, mouth dryness, oral bleeding, otitis, sinusitis, sputum production, stomatitis, alteration of taste, or tinnitus. ENDOCRINE: Denies hot flashes or menstrual irregularities (she is postmenopausal). Denies thyroid disease. CONSTITUTIONAL: She does complain of a fairly good appetite and fatigue. Denies fevers, lethargy. Denies malaise. She denies night sweats, rigors, or recent weight change. CARDIOVASCULAR SYSTEM: Denies arrhythmias, chest pain, dyspnea, edema, orthopnea, or palpitations. BREASTS: She has had a recent breast biopsy, but has currently no breast masses, nipple discharge, nipple inversion, or pain. IMPRESSION: Patient with a stage [id number] C infiltrating carcinoma involving the left breast at approximately the 3 o'clock position. The tumor was ER/CO positive, HER2/dayne not overly expressed. She is currently on an aromatase inhibitor. Adjuvant local regional radiotherapy is recommended to the breast. The patient will have whole breast radiotherapy. This will be followed by a lumpectomy scar boost probably utilizing an energetic electron beam. We will treat her to 4680 centigray and then administer a 1200 centigray electron beam boost of the lumpectomy scar site. The indications and possible side effects of radiotherapy including skin reaction, retraction of the treated breast, desquamation, fatigue, fibrosis of the irradiated tissue, and perhaps even some chronic pain with vulnerability of rib fragility these potential side effects have been explained to the patient in detail. She understands and is willing to proceed as outlined as this is a left lying lesion and the patient has rather pendulous breasts. We might benefit the patient by exploring the possibility of utilizing IMRT as the delivery technique of choice. Localization will be accomplished upon our CT simulator and treatment portals defined by the use of multiple leaf collimators. Thank you for referring this very forrest lady to us and allowing us the opportunity of participation in her overall management. cc: JERAD Malhotra MD Sara McGee, MD MTDD
== END ==
LOC: M ONCR 10:09
PROVIDERS: ATTEND Radiology Radiation Oncology
DX: C50.212 Malignant neoplasm of upper-inner quadrant of left female breast (principal)

== ENCOUNTER 2019-04-04 11:30 | Outpatient (RCR) | payer MEDICARE, MEDICAID ==
--- NOTE | 2019-03-31 08:13 | RADONC ---
RADIATION ONCOLOGY SIMULATION NOTE DATE: 03/27/2019 CHART NUMBER: [id number] SIMULATION NOTE: Ms. Rodriguez was taken to the CT scan for CT simulation of her left breast field. CT was accomplished without difficulty or discomfort. Radiation treatment planning is underway and radiation treatments will begin subsequently. An immobilization device was created and will be used throughout the course of treatment. It was created without difficulty or discomfort. I was physically present throughout the course of CT simulation.
[~2019-04-04 11:30] MED LIST changes: +OMEP1CAP73 PO; -OMEP20CA4 PO
[2019-04-28] MEDS ORDERED: SILV40CR EXT (13:01)
== END 2019-04-05 ==
LOC: M ONCR 11:30
PROVIDERS: ATTEND Radiology Radiation Oncology
DX: C50.412 Malignant neoplasm of upper-outer quadrant of left female breast (principal)

== ENCOUNTER → 2019-05-05 | Outpatient (RCR) | payer MEDICARE, MEDICAID ==
--- NOTE | 2019-04-09 09:37 | RADONC ---
RADIATION ONCOLOGY PROGRESS NOTE DATE: 04/08/2019 CHART NUMBER: [id number] Mrs. 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 Her current dose is 540 cGy of a proposed 4680 cGy via IMRT. Treatments are going well. REVIEW OF SYSTEMS: She denies any nausea, vomiting, coughing, sputum production or hemoptysis. Her energy level is such that she is able to maintain most day-to-day activities without any alteration of her lifestyle. Skin irritation is denied. EXAMINATION FINDINGS: The skin within the irradiated volume although shows no erythema at the current time it is markedly pendulous. There is no palpable peripheral lymphadenopathy. The remainder of the physical examination is unchanged. IMPRESSION: Tolerating therapy reasonably well. PLAN: Treatments to continue. MTDD
--- NOTE | 2019-04-15 09:02 | RADONC ---
RADIATION ONCOLOGY PROGRESS NOTE DATE: 04/14/2019 CHART NUMBER: [id number] Ms. Rodriguez, with a diagnosis of malignant neoplasm of the upper outer quadrant of the left breast, is currently receiving local regional radiotherapy via IMRT. She appears to be tolerating her radiotherapy quite well and denies any nausea, vomiting, coughing, sputum production or hemoptysis. Her energy level is satisfactory and she is able to maintain most day-to-day activities without any alteration of her lifestyle. Skin irritation is denied. Examination findings: The skin within the irradiated volume shows neither erythema nor desquamation. Lymphatics: No palpable peripheral lymphadenopathy is appreciated in the cervical, supraclavicular, axillary, inguinal lymph node chains. Lungs are clear. Heart: Regular. Remainder of the physical examination is unchanged. IMPRESSION: Tolerating therapy quite well. PLAN: Treatments to continue.
--- NOTE | 2019-04-23 13:07 | RADONC ---
RADIATION ONCOLOGY PROGRESS NOTE DATE: 04/21/2019 CHART NUMBER: [id number] Ms. Kebede is presently at a dose of 2160 centigrade to her left breast and is tolerating treatments quite well at this point with no significant difficulties related to her radiation therapy. REVIEW OF SYSTEMS: The patient's review of systems noncontributory. She denies nausea, vomiting, fevers, chills, night sweats, diplopia, headaches, anxiety or depression, anorexia, weight loss, visual disturbances, chest pain, urinary or bowel difficulties, bone pain, or neurological problems. PHYSICAL EXAMINATION: The patient's skin is in good condition with no evidence of moist or dry desquamation. There is some erythema present in the inframammary region. The remainder of her physical exam remains unchanged. Ms. Rodriguez is tolerating treatments quite well and radiation will continue as scheduled.
--- NOTE | 2019-04-29 16:17 | RADONC ---
RADIATION ONCOLOGY PROGRESS NOTE DATE: 04/28/2019 CHART NUMBER: [id number] PROGRESS NOTE: Ms. Rodriguez is presently at a dose of 3060 cGy to her left breast and is tolerating her treatments fairly well. Although, she is complaining of some pain and discomfort in the inframammary and axillary areas. REVIEW OF SYSTEMS: The patient's review of systems is positive for some discomfort in the axillary and the mammary region but is otherwise noncontributory. The patient's review of systems is noncontributory. Denies nausea, vomiting, fevers, chills, night sweats, diplopia, headaches, anxiety or depression, anorexia, weight loss, visual disturbances, chest pain, urinary or bowel difficulties, bone pain, or neurological problems. . PHYSICAL EXAMINATION: The patient's skin shows erythema and tanning present from her breast. The remainder of physical exam remains unchanged. Radiation is well tolerated and will continue as scheduled. I have ordered a prescription for Silvadene for this patient.
[~2019-05-05] MED LIST changes: -OMEP1CAP73 PO; +OMEP20CA4 PO; +SILV40CR EXT
--- NOTE | 2019-05-06 07:03 | RADONC ---
RADIATION ONCOLOGY PROGRESS NOTE DATE: 05/05/2019 CHART #: [id number] Ms. Rodriguez is presently at a dose of 3960 cGy to her left breast. She reports that she has absolutely no pain or discomfort. REVIEW OF SYSTEMS: The patient's review of systems is noncontributory. Denies nausea, vomiting, fevers, chills, night sweats, diplopia, headaches, anxiety or depression, anorexia, weight loss, visual disturbances, chest pain, urinary or bowel difficulties, bone pain, or neurological problems. PHYSICAL EXAMINATION: However, on physical exam, there is brisk erythema and tanning present as well as multiple areas in the inframammary and axillary areas showing desquamation. She is using Silvadene. The remainder of the skin as mentioned is erythematous. The remainder of physical exam is unchanged. I had a lengthy discussion with this patient and have recommended a break from treatment. At this time, she absolutely does not wish to take time off. I explained to her that her skin will continue to become more red and eventually may become painful. She again insists that she is not in pain at this time and would rather just complete therapy if possible. In light of the patient's wishes, I have let her know that we will follow her closely and see her again on Sunday prior to treatment to see whether or not she wishes to take a break at that point. In the meanwhile, radiation will continue as scheduled.
== END ==
LOC: M ONCR 04-08 11:34
PROVIDERS: ATTEND Radiology Radiation Oncology
DX: C50.412 Malignant neoplasm of upper-outer quadrant of left female breast (principal)

== ENCOUNTER 2019-05-14 11:05 | Outpatient (RCR) | payer MEDICARE, MEDICAID ==
--- NOTE | 2019-05-13 12:31 | RADONC ---
RADIATION ONCOLOGY PROGRESS NOTE DATE: 05/12/2019 CHART NUMBER: [id number] Ms. Rodriguez is thus far at a dose of 4140 cGy to her left breast and was last treated on 05/06/2019. Due to her brisk skin reaction the patient has been on break and will be reevaluated by us on May 14. She is using Silvadene and had been given skin care instructions. The patient also has my cell phone number and work number if I could be of any assistance in the meantime. We will continue to follow her closely. We are planning a dose of only 4680 cGy total to her left breast considering her large breast size.
[2019-05-14] MEDS ORDERED: PERC10TA26 PO (11:30)
--- NOTE | 2019-05-16 08:05 | RADONC ---
RADIATION ONCOLOGY TREATMENT SUMMARY DATE: 05/14/2019 CHART #: [id number] DIAGNOSIS: Left breast cancer. STAGE: I A, [id number]. TREATMENT SUMMARY: Ms. Rodriguez is a 68-year-old white female who presented to us status post lumpectomy for consideration of postoperative radiation therapy for conservative breast management. We treated the patient to her left breast for a total dose of 4140 cGy delivered in 23 fractions of 180 cGy each over 33 elapsed days from 04/03/2019 through 05/06/2019. The patient's left breast was treated on a linear accelerator utilizing IMRT/IGRT with a 6 X photon beam. The patient did not tolerate treatments well and at her insistence has now completed therapy before our anticipated dose of 4680 cGy. I have been following this patient quite closely and was concerned with her skin reaction. I initially saw her the end of the week of April 28 and recommended that she take a treatment break. The patient has a significantly large breast and multiple skin folds which caused me concern. We did give her a prescription for Silvadene. On May 05, during weekly management we saw the patient who had a brisk skin reaction with moist desquamation in the axillary and inframammary region. This looked in my opinion as though it would be quite uncomfortable. Although we had a very lengthy discussion, the patient kept insisting and demanding that we continue with radiation and she did not want a break. She insisted that she had no pain whatsoever and she wanted to continue since there was not much radiation left. At that time, I went through a lengthy discussion with this patient to let her know that the skin reaction will worsen over the next several days and that I highly recommend that she consider a break. At that time, of course, she said she would not undergo a break or she would just stop her treatments. She did not wish to extend them further. I therefore agreed since she was on our treatment table to treat her at her insistence and on May 06. We let her know we will continue to evaluate her on a daily basis. On May 07, the patient once again claimed she was having no pain whatsoever and was insistent on completing treatment. However, when attempting to set her up for treatment, clearly she was in significant discomfort and having difficulty getting into the treatment position. At that point, I insisted that she take a break. She was made fully aware that this will get worse over the next several days and to continue using Silvadene. She was given skin care instructions. She remained on rest until today, May 14, when she came in wishing to restart radiation. The patient reported that she was now in significant discomfort. On physical examination, there were areas of moist desquamation in the upper outer quadrant near the axilla as well as in the inframammary region. I explained to her that at this time we cannot restart radiation and recommended the break continue until Sunday. I would also consider lowering the dose to 4500 cGy total which should be a tumoricidal dose. That would only be two more fractions. The patient reported that if she did not start radiation today and complete she was not going to get any further radiation. She has insisted that she stop treatment at this point, although it is two fractions shy of where we would like in the radiation dose. At this point, we are now completing this patient from treatment at her insistence. We will continue to follow her closely and continue with skin care. I have given the patient a prescription for Percocet for pain. In addition, she has been given more skin care instructions as well as supplies to be used at home. The patient has my cell phone number as well as office number if I could be of any assistance or answer any questions in the meantime. She is now 8 days since her last fraction and the desquamation areas should soon improve. We will continue to follow her and undertake skin care instructions. I thank you for allowing us to participate in the care of this patient. The patient did ask why she cannot have her breasts off. She reports that they are very heavy and large and she would prefer to have both breasts off. I explained to her that at this time she has no known cancer and that the radiation itself was preventative in nature. I explained that that decision should have been made by her prior to her cancer surgery and treatment. At this time, I see no indication for any mastectomies. Once again, as just stated, she has no known cancer. She will require close followup over the years however. cc: Gisele Bruno, MD Estelle Hi MD MTDD
== END 2019-06-05 ==
LOC: M ONCR 11:05
PROVIDERS: ATTEND Radiology Radiation Oncology
DX: C50.412 Malignant neoplasm of upper-outer quadrant of left female breast (principal)

== ENCOUNTER → 2019-05-21 | Outpatient (CLI) | payer MEDICARE, MEDICAID ==
[~2019-05-21] MED LIST changes: +PERC10TA26 PO
--- NOTE | 2019-05-22 10:35 | RADONC ---
RADIATION ONCOLOGY FOLLOWUP NOTE DATE: 05/21/2019 CHART NUMBER: [id number] DIAGNOSIS: Left breast cancer. STAGE: IA, T1c, N0, M0. FOLLOWUP NOTE: Ms. Rodriguez is a 68-year-old white female who completed her therapy at her insistence on 05/06/2019 at a dose of 4140 cGy to her left breast. The patient reports today for her followup visit for evaluation of her skin reaction. The patient reports today that she is much better at this time. She says the pain is largely resolved and overall she is feeling well. The patient's review of systems is otherwise noncontributory. She denies nausea, vomiting, fevers, chills, night sweats, diplopia, headaches, anxiety or depression, anorexia, weight loss, visual disturbances, chest pain, urinary or bowel difficulties, bone pain, or neurological problems. PHYSICAL EXAMINATION: The patient is a white female in no acute distress. HEENT: Exam is normocephalic, atraumatic. Extraocular movements are intact. There is no palpable cervical, supraclavicular, infraclavicular, axillary or inguinal lymphadenopathy present. Lungs are clear to auscultation and percussion. Heart has regular rate and rhythm. The patient's left breast has some desquamation but the skin is healing nicely. There is no oozing at the present time. There is some residual erythema present. The contralateral breast is unremarkable. There is a line of skin lesions from the spinal area all the way through along her lower ribs. This looks very much to me like shingles. The patient reports that they are not tender or causing her any problems. She appears unaware that they were even there. The remainder of her physical exam remains unchanged. Ms. Rodriguez is improving significantly now 2 weeks post completion of radiation. She has no intention of restarting treatments at this point. In light of that I have set her up for another followup visit in 1 month for reevaluation once again of her overall skin condition. I have asked her contact her primary care physician with regards to the shingles issues. In addition I have given her some triple antibiotic ointment to be applied topically. cc: JERAD Malhotra MD Sara McGee, MD
== END ==
LOC: M ONCR 10:42
PROVIDERS: ATTEND Radiology Radiation Oncology
DX: C50.412 Malignant neoplasm of upper-outer quadrant of left female breast (principal)

== ENCOUNTER → 2019-05-26 | Outpatient (REF) | payer MEDICARE, MEDICAID ==
[2019-05-26 11:17] LABS: ALBUMIN 3.3 GM/DL (3.2-5.2); CALCIUM LEVEL 9.3 MG/DL (8.8-10.2); CREATININE FOR GFR 1.91 MG/DL (0.55-1.30); FREE T4 1.51 NG/DL (0.76-1.46); GLOMERULAR FILTRATION RATE 27.9 (>45); POTASSIUM SERUM 3.9 MEQ/L (3.5-5.1); THYROID STIMULATING HORMONE 0.528 uIU/ML (0.358-3.740); TOTAL PROTEIN 7.2 GM/DL (6.4-8.2)
[2019-05-26 12:46] LABS: HEMOGLOBIN A1c 9.3 %
== END ==
LOC: M SFHCPLAZ 08:06
PROVIDERS: ATTEND Nurse Practitioner Family
DX: E11.22 Type 2 diabetes mellitus with diabetic chronic kidney disease (principal); E03.9 Hypothyroidism, unspecified

== ENCOUNTER → 2019-06-03 | Outpatient (REF) | payer MEDICARE, MEDICAID ==
[2019-06-03 10:14] LABS: APPEARANCE, URINE CLEAR (CLEAR); BACTERIA, URINE AUTO 1+ (NEGATIVE); BILIRUBIN, URINE AUTO NEGATIVE (NEGATIVE); BLOOD, URINE BLOOD NEGATIVE (NEGATIVE); COLOR, URINE YELLOW (YELLOW); GLUCOSE, URINE (UA) AUTO NEGATIVE (NEGATIVE); KETONE, URINE AUTO NEGATIVE (NEGATIVE); LEUKOCYTE ESTERASE, URINE AUTO NEGATIVE (NEGATIVE); NITRITE, URINE AUTO NEGATIVE (NEGATIVE); PROTEIN, URINE AUTO 1+ mg/dL (NEGATIVE); RBC, URINE AUTO 2 /HPF (0-3); SPECIFIC GRAVITY URINE AUTO 1.012 (1.002-1.035); SQUAMOUS EPITHELIAL CELL UR AU 0 /HPF (0-6); UROBILINOGEN, URINE AUTO 0.2 mg/dL (0.0-2.0); WBC, URINE AUTO 0 /HPF (0-3)
[2019-06-03 10:20] LABS: BASO % 0.6 % (0.0-1.0); EOS # 0.1 10^3/uL (0.0-0.5); EOS % 1.9 % (0.0-3.0); HEMATOCRIT 29.8 % (36.0-47.0); HEMOGLOBIN 9.7 g/dl (12.0-15.5); LYMPH # 0.4 10^3/uL (1.5-5.0); MEAN CORPUSCULAR HEMOGLOBIN 34.3 pg (27.0-33.0); MEAN CORPUSCULAR HGB CONC 32.6 g/dl (32.0-36.5); MEAN CORPUSCULAR VOLUME 105.3 fl (80.0-96.0); MONO # 0.4 10^3/uL (0.0-0.8); MONO % 10.8 % (0.0-5.0); NEUTROPHILS # 2.7 10^3/uL (1.5-8.5); NEUTROPHILS % 75.1 % (36.0-66.0); RED BLOOD COUNT 2.83 10^6/uL (4.00-5.40); WHITE BLOOD COUNT 3.6 10^3/uL (4.0-10.0)
[2019-06-03 10:47] LABS: ALBUMIN 3.4 GM/DL (3.2-5.2); CALCIUM LEVEL 9.3 MG/DL (8.8-10.2); CREATININE FOR GFR 2.02 MG/DL (0.55-1.30); GLOMERULAR FILTRATION RATE 26.2 (>45); MAGNESIUM LEVEL 1.5 MG/DL (1.8-2.4); POTASSIUM SERUM 4.2 MEQ/L (3.5-5.1); URIC ACID 5.7 MG/DL (2.6-6.0)
[2019-06-03 10:50] LABS: PLATELET COUNT, AUTOMATED 91 10^3/uL (150-450)
[2019-06-03 10:55] LABS: PTH INTACT 75.7 PG/ML (18.5-88.0)
[2019-06-10 09:40] LABS: PERCENT SATURATION 40.3 % (13.2-45.0)
== END ==
LOC: M LABDRAWP 08:46
PROVIDERS: ATTEND Internal Medicine Nephrology
DX: N18.4 Chronic kidney disease, stage 4 (severe) (principal); N20.0 Calculus of kidney; N25.81 Secondary hyperparathyroidism of renal origin; Z23 Encounter for immunization
CPT/HCPCS: 36415; 80069; 81001; 83550; 83735; 83970; 84550; 85025; 85049; 85055; 90682; G0008; G0463

== ENCOUNTER → 2019-06-25 | Outpatient (CLI) | payer MEDICARE, MEDICAID ==
--- NOTE | 2019-06-27 10:08 | RADONC ---
RADIATION ONCOLOGY FOLLOWUP NOTE DATE: 06/25/2019 CHART NUMBER: [id number] DIAGNOSIS: Left breast cancer. STAGE: I A, [id number]. ECOG PERFORMANCE STATUS: 0 FOLLOWUP NOTE: Ms. Rodriguez is a 69-year-old white female with the diagnosis of a stage I A, [id number] infiltrating ductal carcinoma of the left breast who is presenting to us today for followup visit 6 weeks post completion of external beam radiation therapy. The patient discontinued her treatments at a dose of 4140 cGy against medical advice at that time. The patient comes in today reporting that her life will never be the same and that she has 8/10 pain. REVIEW OF SYSTEMS: Positive for pain over the breast, but is otherwise noncontributory. Denies nausea, vomiting, fevers, chills, night sweats, diplopia, headaches, anxiety or depression, anorexia, weight loss, visual disturbances, chest pain, urinary or bowel difficulties, bone pain, or neurological problems. PHYSICAL EXAMINATION: PHYSICAL EXAMINATION: The patient is a well-developed, well-nourished, 69-year-old white female in no acute distress. HEENT exam is normocephalic, atraumatic. Extraocular movements are intact. There is no palpable cervical, supraclavicular, infraclavicular, axillary, or inguinal lymphadenopathy present. Lungs are clear to auscultation and percussion. Heart has a regular rate and rhythm. Abdomen is benign with no hepatosplenomegaly, masses, or tenderness. Breast examination reveals no masses or discharge bilaterally. The skin over the treated breast is in absolutely excellent condition. Indeed one cannot tell the difference between the skin on the treated side versus the nontreated side. There is no evidence of moist or dry desquamation. No evidence of radiation changes. Skeletal examination reveals no tenderness to pressure or percussion of the bony skeleton. Extremities reveal no clubbing, cyanosis, or edema. Neurologic exam is grossly intact, as is the remainder of the physical examination. ASSESSMENT: The patient is actually clinically doing very well at this point. Her skin has returned to normal. She does have some tenderness in the upper outer region of the breast to pressure but this appears to be well within the normal now just 6 weeks post radiation. Considering the patient still has some residual pain over breast I have scheduled her to see me again in 3 months for a followup visit. At that time, we will discuss mammography and further followup. The patient has my cell phone number and work number. She has been instructed to contact me if I could be of any assistance in the meantime, or if any difficulties arise. I have tried to reassure her that at this point she is on track for routine and expected recovery. I asked her to look at the changes in her skin just over the last few weeks from moist desquamation to healing and basically returned to normal. I let her know that I anticipate a complete response over the next few weeks. We did discuss the possibility of some radiation myositis lasting 9 months to a year and I have given her recommendations with regards to care for that. Once again, we will continue to follow this patient closely. Clinically, she appears to be doing quite well and is healing nicely. My concern of course is that she did not complete her therapy as prescribed and she will need to continue close followup with her various physicians and this office. cc: JERAD Malhotra MD Sara McGee, MD
== END ==
LOC: M ONCR 10:45
PROVIDERS: ATTEND Radiology Radiation Oncology
DX: C50.412 Malignant neoplasm of upper-outer quadrant of left female breast (principal)

== ENCOUNTER → 2019-09-03 | Outpatient (CLI) | payer MEDICARE, MEDICAID ==
[~2019-09-03] MED LIST changes: +GLIM1TAB4 PO; +OMEP1CAP73 PO; -OMEP20CA4 PO; +VITA500079 PO
[2019-09-03 13:40] LABS: BASO % 0.5 % (0.0-1.0); EOS # 0.1 10^3/uL (0.0-0.5); EOS % 2.1 % (0.0-3.0); HEMOGLOBIN 10.6 g/dl (12.0-15.5); LYMPH # 0.8 10^3/uL (1.5-5.0); LYMPH % 19.8 % (24.0-44.0); MEAN CORPUSCULAR HEMOGLOBIN 33.8 pg (27.0-33.0); MEAN CORPUSCULAR HGB CONC 32.1 g/dl (32.0-36.5); MEAN CORPUSCULAR VOLUME 105.1 fl (80.0-96.0); MONO # 0.3 10^3/uL (0.0-0.8); MONO % 7.2 % (0.0-5.0); NEUTROPHILS # 2.7 10^3/uL (1.5-8.5); NEUTROPHILS % 70.1 % (36.0-66.0); RED BLOOD COUNT 3.14 10^6/uL (4.00-5.40); WHITE BLOOD COUNT 3.9 10^3/uL (4.0-10.0)
[2019-09-03 13:47] LABS: PLATELET COUNT, AUTOMATED 86 10^3/uL (150-450)
[2019-09-03 14:02] LABS: ALBUMIN 3.7 GM/DL (3.2-5.2); CALCIUM LEVEL 10.1 MG/DL (8.8-10.2); CREATININE FOR GFR 2.27 MG/DL (0.55-1.30); GLOMERULAR FILTRATION RATE 22.8 (>45); PHOSPHORUS LEVEL 3.7 MG/DL (2.5-4.9); URIC ACID 5.6 MG/DL (2.6-6.0)
[2019-09-03 14:10] LABS: PTH INTACT 57.6 PG/ML (18.5-88.0)
[2019-09-03 14:36] LABS: APPEARANCE, URINE CLEAR (CLEAR); BACTERIA, URINE AUTO NEGATIVE (NEGATIVE); BILIRUBIN, URINE AUTO NEGATIVE (NEGATIVE); BLOOD, URINE BLOOD NEGATIVE (NEGATIVE); COLOR, URINE YELLOW (YELLOW); GLUCOSE, URINE (UA) AUTO NEGATIVE (NEGATIVE); KETONE, URINE AUTO NEGATIVE (NEGATIVE); LEUKOCYTE ESTERASE, URINE AUTO NEGATIVE (NEGATIVE); MUCUS, URINE SMALL (NEGATIVE); NITRITE, URINE AUTO NEGATIVE (NEGATIVE); PROTEIN, URINE AUTO 1+ mg/dL (NEGATIVE); RBC, URINE AUTO 2 /HPF (0-3); SPECIFIC GRAVITY URINE AUTO 1.015 (1.002-1.035); SQUAMOUS EPITHELIAL CELL UR AU 0 /HPF (0-6); UROBILINOGEN, URINE AUTO 0.2 mg/dL (0.0-2.0); WBC, URINE AUTO 6 /HPF (0-3)
== END ==
LOC: M LAB 12:05
PROVIDERS: ATTEND Nurse Practitioner Family
DX: N18.4 Chronic kidney disease, stage 4 (severe) (principal); D64.9 Anemia, unspecified; N25.81 Secondary hyperparathyroidism of renal origin; M10.9 Gout, unspecified; E11.65 Type 2 diabetes mellitus with hyperglycemia

== ENCOUNTER → 2019-09-03 | Outpatient (CLI) | payer MEDICARE, MEDICAID ==
[2019-09-03 14:04] LABS: ALBUMIN 3.6 GM/DL (3.2-5.2); BILIRUBIN,TOTAL 1.3 MG/DL (0.2-1.0); CREATININE FOR GFR 2.24 MG/DL (0.55-1.30); GLOMERULAR FILTRATION RATE 23.1 (>45); POTASSIUM SERUM 4.1 MEQ/L (3.5-5.1); TOTAL PROTEIN 7.6 GM/DL (6.4-8.2)
== END ==
LOC: M LAB 12:08
PROVIDERS: ATTEND Nurse Practitioner Family
DX: E11.65 Type 2 diabetes mellitus with hyperglycemia (principal)

== ENCOUNTER → 2019-09-08 | Outpatient (CLI) | payer MEDICARE, MEDICAID ==
[2019-09-08 10:46] LABS: BILIRUBIN,DIRECT 0.2 MG/DL (0.0-0.2); BILIRUBIN,TOTAL 0.6 MG/DL (0.2-1.0); FERRITIN 94 NG/ML (8-252); IRON (FE) 73 UG/DL (50-170); LDH LACTATE DEHYDROGENASE 277 U/L (84-246); PERCENT SATURATION 24.1 % (13.2-45.0); RHEUMATOID FACTOR QUANT < 10.0 IU/ML (<15.0); THYROID STIMULATING HORMONE 0.852 uIU/ML (0.358-3.740); TOTAL IRON BINDING CAPACITY 303 UG/DL (250-450); TOTAL PROTEIN 7.3 GM/DL (6.4-8.2)
[2019-09-08 11:15] LABS: VITAMIN B12 LEVEL 316 PG/ML
[2019-09-08 11:35] LABS: FOLATE 13.1 NG/ML
[2019-09-09 11:01] LABS: ALBUMIN 3.88 GM/DL (3.29-5.55); ALBUMIN % 53.2 % (55.8-66.1); ALPHA-1-GLOBULINS 0.29 GM/DL (0.17-0.41); ALPHA-2-GLOBULINS 0.72 GM/DL (0.42-0.99); ALPHA-2-GLOBULINS % 9.9 % (7.1-11.8); BETA-1-GLOBULINS 0.53 GM/DL (0.28-0.60); BETA-1-GLOBULINS % 7.3 % (4.7-7.2); BETA-2-GLOBULINS 0.57 GM/DL (0.19-0.55); BETA-2-GLOBULINS % 7.8 % (3.2-6.5); GAMMA GLOBULIN % 17.8 % (11.1-18.8)
[2019-09-09 13:15] LABS: TOTAL PROTEIN,RANDOM URINE 30.7 MG/DL (0.0-12.0); URINE TOTAL PROTEIN 30.7 MG/DL (0-12)
[2019-09-09 14:09] LABS: ANTINUCLEAR ANTIBODIES DIRECT Negative (Negative); HAPTOGLOBIN 34 mg/dL (37-355)
[2019-09-11 14:22] LABS: UPEP INTERPRETATION NO M-SPIKE NOTED; URINE VOLUME RANDOM ML
== END ==
LOC: M LAB 08:09
PROVIDERS: ATTEND Internal Medicine Hematology & Oncology
DX: D61.818 Other pancytopenia (principal)

== ENCOUNTER → 2019-09-15 | Outpatient (CLI) | payer MEDICARE, MEDICAID ==
--- NOTE | 2019-09-18 13:04 | DEXA ---
AP SPINE L1 - L4 1.371 1.4 3.1 LT FEMUR TOTAL 0.777 -1.8 -0.5 LT NECK 0.679 -2.6 -1.0 RT FEMUR TOTAL 0.738 -2.1 -0.8 RT NECK 0.676 -2.6 -1.0 TOTAL BODY TOTAL OTHER COMMENTS: Normal bone densitometry of the spine. There is osteoporosis of the hips. The density of the spine has increased 41.2% since the initial exam on 02/13/2008. The spine density has increased 24.4% since the most recent exam on 07/18/2010. The density of the left hip has decreased 14.7% since the initial exam on 02/13/2008. The density of the left hip has decreased 11.5% since the most recent exam on 07/18/2010. The density of the right hip has decreased 10.9% since the initial exam on 02/13/2008. The density of the right hip has decreased 11.8% since the most recent exam on 07/18/2010. FOLLOW-UP: Recommendation for the next bone density exam: 2 years. KARINA
== END ==
LOC: M WHC 09:38
PROVIDERS: ATTEND Internal Medicine Hematology & Oncology
DX: Z51.81 Encounter for therapeutic drug level monitoring (principal); Z79.899 Other long term (current) drug therapy; Z78.0 Asymptomatic menopausal state; Z85.3 Personal history of malignant neoplasm of breast; M81.0 Age-related osteoporosis without current pathological fracture; M85.851 Other specified disorders of bone density and structure, right thigh; M85.852 Other specified disorders of bone density and structure, left thigh; M85.88 Other specified disorders of bone density and structure, other site

== ENCOUNTER → 2019-10-01 | Outpatient (CLI) | payer MEDICARE, MEDICAID ==
[~2019-10-01] MED LIST changes: +RANI150T14 PO
--- NOTE | 2019-10-01 09:35 | REP ---
Complete abdominal ultrasound to evaluate for splenomegaly and cirrhosis: There is a 1.5 x 1.8 cm gallbladder calculus near the gallbladder neck. The gallbladder wall measures 4 mm thickness, suggestive of gallbladder wall edema. There is no pericholecystic fluid. Clinical correlation for acute cholecystitis is recommended. There is no intrahepatic or extrahepatic biliary duct dilatation. The common biliary duct measures 5 mm in diameter. The hepatic parenchyma is homogeneous and mildly hyperechoic compatible with hepato steatosis. There are no hepatic masses. The visualized portions of the pancreas are unremarkable. Portions of the pancreas are obscured by bowel gas. The spleen is enlarged measuring 13.4 15.4 x 5.6 cm for splenic index of 1156. The right kidney measures a 9.5 x 5.7 x 4.0 cm. The right kidney is in the low normal size range. There is loss of the cortical medullary junction, compatible with renal insufficiency. The left kidney measures 12.2 x 5.4 by 5.2 cm and is normal size. There is a 3.9 a centimeter left renal Bosniak type 1 cyst. There are no solid renal masses. There are no renal calculi. There is no hydronephrosis. The proximal abdominal aorta measures 1.8 cm diameter. The mid abdominal aorta measures 2.0 cm diameter. The distal abdominal aorta measures 1.3 cm in diameter. There is no abdominal aortic aneurysm. There is no ascites. The study is technically difficult because of patient body habitus. Impression: There is a gallbladder calculus in the gallbladder neck. The gallbladder wall measures 4 mm thickness. This may indicate gallbladder wall edema. There is no pericholecystic fluid. Clinical correlation for acute cholecystitis is recommended. There is no biliary duct dilatation. Splenomegaly. The right kidney is in the low normal size range enters loss of the cortical medullary junction compatible with right renal insufficiency. Electronically Signed by Moi Mesa MD 10/01/2019 09:26 A
== END ==
LOC: M RAD 07:27
PROVIDERS: ATTEND Internal Medicine Hematology & Oncology
DX: D61.818 Other pancytopenia (principal); K80.20 Calculus of gallbladder without cholecystitis without obstruction; R16.1 Splenomegaly, not elsewhere classified

== ENCOUNTER → 2019-10-01 | Outpatient (CLI) | payer MEDICARE, MEDICAID ==
--- NOTE | 2019-10-02 10:48 | RADONC ---
RADIATION ONCOLOGY FOLLOWUP NOTE DATE: 10/01/2019 CHART #: [id number] DIAGNOSIS: Left breast cancer. STAGE: I A, [id number]. ECOG PERFORMANCE STATUS: 0. FOLLOWUP NOTE: Ms. Kebede is a 69-year-old white female who is presenting to us today 6 months post completion of external beam radiation therapy to her left breast. The patient comes in today with a slew of complaints including pain and aches throughout her entire body including her joints, ankles, elbows, wrists - basically everywhere. She is denying any discomfort, however, in the left treated breast. She has no problems with that breast. REVIEW OF SYSTEMS: Otherwise negative for any constitutional symptoms. She is having no shortness of breath. No chest pain. She has no nausea, vomiting, diarrhea or constipation. She has no dysuria or hematuria. She is having no headaches, dizziness or neurological problems. PHYSICAL EXAMINATION: The patient is an obese white female in no acute distress. HEENT exam is normocephalic, atraumatic. Extraocular movements are intact. There is no palpable cervical, supraclavicular, infraclavicular, axillary, or inguinal lymphadenopathy present. Lungs are clear to auscultation and percussion. Heart has a regular rate and rhythm. Abdomen is benign with no hepatosplenomegaly, masses, or tenderness. Breast examination reveals no masses or discharge bilaterally. Skeletal examination reveals no tenderness to pressure or percussion of the bony skeleton. Extremities reveal no clubbing, cyanosis, or edema. Neurologic exam is grossly intact, as is the remainder of the physical examination. IMPRESSION: The patient reports that she is being seen by her medical oncologist, Dr. Geovany Chen MD, on an almost daily basis. Multiple tests are being undertaken and she is getting B12 shots. In light of her close followup with her medical oncologist and the workup thereby undergoing, as well as my impending custodial, I am discharging her from our followup except on a p.r.n. basis. cc: JERAD Malhotra MD Leno Thomas, MD
== END ==
LOC: M ONCR 09:02
PROVIDERS: ATTEND Radiology Radiation Oncology
DX: C50.412 Malignant neoplasm of upper-outer quadrant of left female breast (principal)

== ENCOUNTER 2019-10-09 10:38 | Emergency (ER) | payer MEDICARE, MEDICAID ==
[~2019-10-09] VITALS: Ht 160 cm; Wt 122.7 kg
[~2019-10-09 10:38] MED LIST changes: -ELIQ5TAB PO; -LIDOCAINE 1% MDV 20ML VIAL As Ordered ONE; -MIDAZOLAM INJ 2 MG/2 ML VIAL (J2250) As Ordered ONE; -fentaNYL 100 MCG/2 ML INJECTION (J3010) As Ordered ONE; -propofoL 200 MG/20 ML VIAL As Ordered ONE
[2019-10-09 11:56] LABS: ALBUMIN 3.5 GM/DL (3.2-5.2); BILIRUBIN,TOTAL 0.8 MG/DL (0.2-1.0); CALCIUM LEVEL 10.8 MG/DL (8.8-10.2); CREATININE FOR GFR 2.82 MG/DL (0.55-1.30); FREE THYROXINE INDEX 3.4 % (1.3-4.8); GLOMERULAR FILTRATION RATE 17.7 (>45); MAGNESIUM LEVEL 2.3 MG/DL (1.8-2.4); POTASSIUM SERUM 4.2 MEQ/L (3.5-5.1); THYROID STIMULATING HORMONE 1.01 uIU/ML (0.358-3.740); THYROXINE (T4) 9.2 UG/DL (4.5-12.0); TOTAL PROTEIN 7.4 GM/DL (6.4-8.2)
[2019-10-09] MEDS ORDERED: ELIQ5TAB PO (13:28)
[2019-10-09 14:30] VITALS: BP 140/61
--- NOTE | 2019-10-09 17:28 | ECGEPIP ---
[facility] - ED Test Date: 2019-10-09 Pat Name: TAHIRA KAMARA Department: Room: - Gender: Female General Passenger Agent: : 1950 Requested By: Maia French Order Number: [id number] Reading MD: Leo Ruth Measurements Intervals [place] Rate: 83 P: 60 ME: 300 QRS: -8 QRSD: 94 T: 108 QT: 359 QTc: 423 Interpretive Statements ATRIAL FIBBRILLATION ANTEROSEPTAL MYOCARDIAL INFARCTION, OF INDETERMINATE AGE NSTTW ABNORMALITIES SIMILAR TO PRIOR ON SAME DATE Electronically Signed on 10-09-2019 17:27:58 EST by Leo Ruth
--- NOTE | 2019-10-09 21:13 | ECGEPIP ---
[facility] - ED Test Date: 2019-10-09 Pat Name: TAHIRA KAMARA Department: Room: - Gender: Female Impregnator Helper: jose juanbrennan : 1950 Requested By: Maia French Order Number: [id number] Reading MD: Leo Ruth Measurements Intervals [place] Rate: 81 P: -2 MD: 274 QRS: -5 QRSD: 114 T: 97 QT: 377 QTc: 438 Interpretive Statements ATRIAL FIBRILLATION LOW QRS VOLTAGE IN EXTREMITY LEADS POSSIBLE ANTERIOR MYOCARDIAL INFARCTION, OF INDETERMINATE AGE SIMILAR TO PRIOR ON SAME DATE Electronically Signed on 10-09-2019 21:13:49 EST by Leo Ruth
== END 2019-10-09 14:47 | disposition home or self-care (01) ==
LOC: M ED 10:38
DX: I48.91 Unspecified atrial fibrillation (principal); D61.818 Other pancytopenia; E11.9 Type 2 diabetes mellitus without complications; F41.9 Anxiety disorder, unspecified; F32.9 Major depressive disorder, single episode, unspecified; E78.5 Hyperlipidemia, unspecified; N18.4 Chronic kidney disease, stage 4 (severe); E07.9 Disorder of thyroid, unspecified; Z85.3 Personal history of malignant neoplasm of breast; Z87.891 Personal history of nicotine dependence; Z79.84 Long term (current) use of oral hypoglycemic drugs; Z79.899 Other long term (current) drug therapy; Z91.89 Other specified personal risk factors, not elsewhere classified; Z88.8 Allergy status to other drugs, medicaments and biological substances
CPT/HCPCS: 80053; 83735; 84436; 84443; 84479; 85027; 93005; 93041; 99285; J2250; J3010

== ENCOUNTER → 2019-10-09 | Outpatient (CLI) | payer MEDICARE, MEDICAID ==
[~2019-10-09] MED LIST changes: +ELIQ5TAB PO; +LIDOCAINE 1% MDV 20ML VIAL As Ordered ONE; +MIDAZOLAM INJ 2 MG/2 ML VIAL (J2250) As Ordered ONE; +fentaNYL 100 MCG/2 ML INJECTION (J3010) As Ordered ONE; +propofoL 200 MG/20 ML VIAL As Ordered ONE
[2019-10-09 09:36] LABS: HEMATOCRIT 27.7 % (36.0-47.0); HEMOGLOBIN 9.5 g/dl (12.0-15.5); MEAN CORPUSCULAR HEMOGLOBIN 35.2 pg (27.0-33.0); MEAN CORPUSCULAR HGB CONC 34.3 g/dl (32.0-36.5); MEAN CORPUSCULAR VOLUME 102.6 fl (80.0-96.0); WHITE BLOOD COUNT 3.8 10^3/uL (4.0-10.0)
[2019-10-09 09:42] LABS: PLATELET COUNT, AUTOMATED 97 10^3/uL (150-450)
[2019-10-09 10:50] VITALS: BP 168/84
--- NOTE | 2019-10-10 14:50 | ECGEPIP ---
[facility] Test Date: 2019-10-09 Pat Name: TAHIRA KAMARA Department: Room: - Gender: Female Perioperative Tech: MITALI : 1950 Requested By: NATHAN AHUJA Order Number: [id number] Reading MD: Main Parson Measurements Intervals [place] Rate: 82 P: PA: 0 QRS: -17 QRSD: 102 T: 119 QT: 380 QTc: 445 Interpretive Statements ATRIAL FIBRILLATION Delayed anterior R wave progression Low QRS complex voltage in the limb leads Baseline artifact Electronically Signed on 10-10-2019 14:50:16 EST by Main Parson
== END ==
LOC: M IRPRO 08:07
PROVIDERS: ATTEND Internal Medicine Hematology & Oncology
DX: D61.818 Other pancytopenia (principal)

== ENCOUNTER → 2019-11-04 | Outpatient (CLI) | payer MEDICARE, MEDICAID ==
[~2019-11-04] MED LIST changes: +ELIQ5TAB PO
--- NOTE | 2019-11-04 13:50 | REP ---
MRI CERVICAL SPINE WITHOUT CONTRAST: HISTORY: Numbness and neck pain. Comparison MRI study is from June 06, 2006. TECHNIQUE: Sagittal and axial T1 and T2-weighted scans are acquired in the usual fashion with and without fat saturation. Sequences include spin echo, turbo spin-echo, and STIR imaging sequences. MRI FINDINGS: There is straightening and reversal of the normal cervical lordosis. Vertebral body heights are preserved. Alignment is otherwise normal. No bony destructive lesion is seen. Craniocervical junction is unremarkable. Cervical cord is normal in course and signal intensity on T1 and T2-weighted scans. At the C4-5 disc level of today's study, there is a moderate size left posterior focal disc protrusion compressing the thecal sac and mildly compressing the cord. There is central canal stenosis at this level which is contributed to by ligamentum flavum hypertrophy dorsolaterally on both sides in addition to the disc protrusion. Midline AP dimension of the thecal sac is 6.4 mm. CSF signal intensity is effaced from the thecal sac at this level on T2-weighted scans. There is uncovertebral spurring and some neural foraminal narrowing bilaterally, left greater than right. The focal disc protrusion is new. At C3-4, there is a small central focal disc protrusion effacing the ventral subarachnoid space. This is also new compared to the prior study. No foraminal narrowing or overall central canal stenosis is seen. At C2-3, there is no significant abnormality. At C5-6, there is degenerative disc narrowing. Diffuse disc bulging and posterior osteophytic ridging is seen effacing the ventral subarachnoid space. There is mild bilateral uncovertebral spurring producing neural foraminal narrowing at C5-6. At C6-7, there is degenerative narrowing of the disc as well. Posterior osteophytic ridging and disc bulging is seen effacing the ventral subarachnoid space. No cord compression is seen. Mild bilateral uncovertebral spurring is present. The C7-T1 level demonstrates minimal diffuse disc bulging. IMPRESSION: Degenerative spondylosis changes. This dominant abnormality is at C4-5 where there is central canal stenosis and mild cord compression due to a moderate sized left posterior focal disc protrusion at C4-5 as well as bilateral ligamentum flavum hypertrophy and some facet hypertrophy. Uncovertebral spurring at multiple levels as above. Electronically Signed by Mani Bajwa MD 11/04/2019 01:56 P
== END ==
LOC: M RAD 09:58
PROVIDERS: ATTEND Internal Medicine Hematology & Oncology
DX: M47.812 Spondylosis without myelopathy or radiculopathy, cervical region (principal); M48.02 Spinal stenosis, cervical region; M50.321 Other cervical disc degeneration at C4-C5 level; M46.02 Spinal enthesopathy, cervical region

== ENCOUNTER → 2019-12-19 | Outpatient (REF) | payer MEDICARE, MEDICAID ==
[2019-12-19 13:35] LABS: ALBUMIN 3.6 GM/DL (3.2-5.2); BILIRUBIN,TOTAL 0.7 MG/DL (0.2-1.0); CALCIUM LEVEL 10.3 MG/DL (8.8-10.2); CHOLESTEROL RISK RATIO 2.73 (<5); CREATININE FOR GFR 3.39 MG/DL (0.55-1.30); FREE T4 1.26 NG/DL (0.76-1.46); GLOMERULAR FILTRATION RATE 14.3 (>45); POTASSIUM SERUM 5.2 MEQ/L (3.5-5.1); THYROID STIMULATING HORMONE 1.84 uIU/ML (0.358-3.740); TOTAL PROTEIN 7.2 GM/DL (6.4-8.2)
[2019-12-19 14:39] LABS: HEMOGLOBIN A1c 7.6 %
== END ==
LOC: M SFHCPLAZ 09:21
PROVIDERS: ATTEND Nurse Practitioner Family
DX: E11.22 Type 2 diabetes mellitus with diabetic chronic kidney disease (principal); E03.9 Hypothyroidism, unspecified; E78.2 Mixed hyperlipidemia
CPT/HCPCS: 36415; 80053; 80061; 83036; 84439; 84443; G0463

== ENCOUNTER → 2019-12-31 | Outpatient (CLI) | payer MEDICARE, MEDICAID ==
--- NOTE | 2019-12-31 10:55 | REPMRS ---
Patient History The patient states she has not had a clinical breast exam in over a year. Patient is postmenopausal, has history of cancer in the left breast at age 68, and had first child at age 39. Family history of breast cancer under age 50 in sister. Malignant lumpectomy of the left breast, December 2018. Radiation therapy of the left breast, 2018. Benign radio exam breast specimen of the left breast, February 17, 2013. Benign stereotatic loc for ea lesion of the left breast, February 17, 2013. No Hormone Replacement Therapy Digital Woman Screen Mammo: December 31, 2019 - Exam #: [id number] Bilateral CC and MLO view(s) were taken. Technologist: Sara Tubbs, Technologist Prior study comparison: November 12, 2018, left breast digital mammo diagnostic unilateral, performed at [facility]. November 12, 2018, right breast digital mammo diagnostic unilateral, performed at [facility]. August 03, 2017, digital woman screen mammo performed at [facility]. June 05, 2016, digital woman screen mammo performed at [facility]. FINDINGS: There are scattered fibroglandular densities. The Volpara volumetric breast density category is:B. Expected post-treatment changes are noted in the left breast. There are two needle biopsy marker clips in the upper outer quadrant of the left breast. There has been no change in the appearance of the mammogram from the prior studies. There is a mild amount of scattered fibroglandular density which is fairly symmetric. There is no interval development of dominant mass, architectural distortion, or grouped microcalcification suggestive of malignancy. 3-D tomosynthesis shows no additional findings. Assessment: BI-RADS/ACR category 2 mammogram. Benign Findings. Recommendation Routine screening mammogram of both breasts in 1 year (for women over age 40). This mammogram was interpreted with the aid of an FDA-approved computer-aided dectection system. Electronically Signed By: Michael Bajwa MD 12/31/19 [id number]
== END ==
LOC: M WHC 08:15
PROVIDERS: ATTEND Internal Medicine Hematology & Oncology
DX: Z12.31 Encounter for screening mammogram for malignant neoplasm of breast (principal); Z80.3 Family history of malignant neoplasm of breast; Z85.3 Personal history of malignant neoplasm of breast

== ENCOUNTER → 2020-01-28 | Outpatient (CLI) | payer MEDICARE, MEDICAID ==
[~2020-01-28] MED LIST changes: +FAMO40TA3 PO; +MAGN400T2 PO; +VASC1CAP2 PO
--- NOTE | 2020-01-28 11:58 | REP ---
RIGHT UPPER EXTREMITY DUPLEX DOPPLER VENOUS ULTRASOUND: For AV fistula mapping. Real-time ultrasound evaluation and duplex Doppler interrogation of right upper extremity deep vein system is performed for AV fistula mapping. No deep vein thrombosis is seen. Right basilic vein measures 5 mm at the upper humerus, 6 mm at the lower humerus and upper forearm and 4 mm in the lower forearm and wrist. Right cephalic vein measures 4 mm at the upper humerus, 5 mm at the lower humerus and 3 mm in the forearm and wrist region. Median cuboid vein measures 3 mm. Right axillary and brachial arteries demonstrate normal flow velocities with triphasic waveforms bot measuring 5 mm. Distal radial artery is visualized with peak systolic velocity 150 cm/s, triphasic waveform measuring 2 mm. Right ulnar artery is only seen in the mid forearm and is not visualized at the level of the wrist. Electronically Signed by Moi Patrick MD 01/28/2020 07:34 P
== END ==
LOC: M RAD 07:26
PROVIDERS: ATTEND Nurse Practitioner Family
DX: N18.5 Chronic kidney disease, stage 5 (principal)

== ENCOUNTER → 2020-02-22 | Outpatient (CLI) | payer MEDICARE, MEDICAID ==
[~2020-02-22] MED LIST changes: +CHOL50003 PO; +[UNRECOGNIZED DRUG - CODE] IM
== END ==
LOC: M LABSMTC 08:48
PROVIDERS: ATTEND Anesthesiology
DX: Z01.818 Encounter for other preprocedural examination (principal); Z11.59 Encounter for screening for other viral diseases; Z20.828 Contact with and (suspected) exposure to other viral communicable diseases
CPT/HCPCS: C9803; U0003

== ENCOUNTER → 2020-02-24 | Outpatient (REF) | payer MEDICARE, MEDICAID ==
[2020-02-24 15:29] LABS: BASO % 0.2 % (0.0-1.0); EOS # 0.1 10^3/uL (0.0-0.5); EOS % 1.2 % (0.0-3.0); HEMATOCRIT 27.8 % (36.0-47.0); HEMOGLOBIN 8.9 g/dl (12.0-15.5); LYMPH # 0.6 10^3/uL (1.5-5.0); LYMPH % 14.7 % (24.0-44.0); MEAN CORPUSCULAR HEMOGLOBIN 34.1 pg (27.0-33.0); MEAN CORPUSCULAR VOLUME 106.5 fl (80.0-96.0); MONO # 0.3 10^3/uL (0.0-0.8); MONO % 8.2 % (0.0-5.0); NEUTROPHILS % 75.5 % (36.0-66.0); RED BLOOD COUNT 2.61 10^6/uL (4.00-5.40)
[2020-02-24 15:36] LABS: INR 1.08; PROTHROMBIN TIME 13.7 SECONDS (11.8-14.0)
[2020-02-24 15:38] LABS: PARTIAL THROMBOPLASTIN TIME 51.4 SECONDS (25.0-38.4)
[2020-02-24 15:40] LABS: PLATELET COUNT, AUTOMATED 94 10^3/uL (150-450)
[2020-02-24 15:52] LABS: ALBUMIN 3.7 GM/DL (3.2-5.2); BILIRUBIN,TOTAL 0.8 MG/DL (0.2-1.0); CALCIUM LEVEL 9.7 MG/DL (8.8-10.2); CREATININE FOR GFR 3.47 MG/DL (0.55-1.30); TOTAL PROTEIN 7.5 GM/DL (6.4-8.2)
== END ==
LOC: M SFHCPLAZ 12:38
PROVIDERS: ATTEND Family Medicine
DX: Z01.818 Encounter for other preprocedural examination (principal); N18.4 Chronic kidney disease, stage 4 (severe)
CPT/HCPCS: 36415; 80053; 85025; 85049; 85055; 85610; 85730; G0463

== ENCOUNTER → 2020-06-01 | Outpatient (REF) | payer MEDICARE, MEDICAID ==
[2020-06-01 14:34] LABS: HEMOGLOBIN A1c 6.4 %
[2020-06-01 14:53] LABS: BILIRUBIN,TOTAL 1.3 MG/DL (0.2-1.0); CALCIUM LEVEL 9.9 MG/DL (8.8-10.2); CHOLESTEROL RISK RATIO 2.724 (<5); CREATININE FOR GFR 3.39 MG/DL (0.55-1.30); FREE T4 1.29 NG/DL (0.76-1.46); GLOMERULAR FILTRATION RATE 14.3 (>45); POTASSIUM SERUM 4.9 MEQ/L (3.5-5.1); THYROID STIMULATING HORMONE 1.52 uIU/ML (0.358-3.740); TOTAL PROTEIN 8.1 GM/DL (6.4-8.2)
== END ==
LOC: M SFHCPLAZ 09:23
PROVIDERS: ATTEND Nurse Practitioner Family
DX: E11.22 Type 2 diabetes mellitus with diabetic chronic kidney disease (principal); E03.9 Hypothyroidism, unspecified; E78.2 Mixed hyperlipidemia; Z23 Encounter for immunization
CPT/HCPCS: 36415; 80053; 80061; 83036; 84439; 84443; 90682; G0008; G0463

== ENCOUNTER → 2020-06-08 | Outpatient (CLI) | payer MEDICARE, MEDICAID ==
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
== END ==
LOC: M PAIN 08:30
PROVIDERS: ATTEND Nurse Practitioner Family
DX: M12.9 Arthropathy, unspecified (principal); F41.1 Generalized anxiety disorder; F32.9 Major depressive disorder, single episode, unspecified; M85.80 Other specified disorders of bone density and structure, unspecified site; N18.4 Chronic kidney disease, stage 4 (severe); E55.9 Vitamin D deficiency, unspecified; E66.01 Morbid (severe) obesity due to excess calories; E78.2 Mixed hyperlipidemia; E03.9 Hypothyroidism, unspecified; I12.9 Hypertensive chronic kidney disease with stage 1 through stage 4 chronic kidney disease, or unspecified chronic kidney disease; Z85.3 Personal history of malignant neoplasm of breast; Z87.891 Personal history of nicotine dependence; Z79.84 Long term (current) use of oral hypoglycemic drugs; Z79.899 Other long term (current) drug therapy; Z88.8 Allergy status to other drugs, medicaments and biological substances; Z68.42 Body mass index [BMI] 45.0-49.9, adult

== ENCOUNTER → 2020-11-16 | Outpatient (REF) | payer MEDICARE, MEDICAID ==
[2020-11-16 17:57] LABS: HEMOGLOBIN A1c 6.2 %
[2020-11-16 18:16] LABS: CREATININE, URINE 61.5 MG/DL; MAU/CREAT RATIO 234.1 MCG/MG (0.0-30.0)
[2020-11-16 18:17] LABS: ALBUMIN 3.6 GM/DL (3.2-5.2); BILIRUBIN,TOTAL 0.6 MG/DL (0.2-1.0); CALCIUM LEVEL 9.1 MG/DL (8.8-10.2); CREATININE FOR GFR 2.97 MG/DL (0.55-1.30); FREE T4 1.34 NG/DL (0.76-1.46); GLOMERULAR FILTRATION RATE 16.7 (>45); POTASSIUM SERUM 4.4 MEQ/L (3.5-5.1); THYROID STIMULATING HORMONE 0.402 uIU/ML (0.358-3.740); TOTAL PROTEIN 7.3 GM/DL (6.4-8.2)
[2020-11-16 18:18] LABS: TOTAL 25(OH) VITAMIN D 37.1 NG/ML (30.0-100.0)
== END ==
LOC: M SFHCPLAZ 16:50
PROVIDERS: ATTEND Nurse Practitioner Family
DX: E11.22 Type 2 diabetes mellitus with diabetic chronic kidney disease (principal); E03.9 Hypothyroidism, unspecified; M81.0 Age-related osteoporosis without current pathological fracture

== ENCOUNTER 2021-01-06 08:33 | Emergency (ER) | payer MEDICARE, MEDICAID ==
[~2021-01-06] VITALS: Ht 160 cm; Wt 122.0 kg
--- NOTE | 2021-01-06 09:31 | REP ---
[facility]2009 TECHNIQUE: Axial noncontrast images from the lung bases to the pubic symphysis with coronal and sagittal reformations. This CT examination was performed using the following dose reduction techniques: Automated exposure control, adjustment of mA and/or kv according to the patient's size, and use of iterative reconstruction technique. FINDINGS: Lung bases are clear. Visualized heart and pericardium normal. Hepatosplenomegaly is appreciated along with recanalized umbilical vein suggesting cirrhosis and portal hypertension. Correlation is required. Cholelithiasis noted without acute cholecystitis. Pancreas and bilateral adrenal glands are normal. Right kidney demonstrates significant atrophy along with 1 cm cyst and few small 1-2 mm nonobstructing calculi. Left kidney is normal in size with 3 cm rounded lesion along the lower pole likely representing cyst. The enteric system is unremarkable and without obstruction or acute inflammatory process. Scattered sigmoid diverticula noted without acute diverticulitis. Normal terminal ileum and appendix identified in the right lower quadrant. Pelvis demonstrates normal bladder and age-appropriate uterus/adnexa. No ascites. No free air. No adenopathy. No focal inflammatory stranding. Abdominal aorta without aneurysm. Congenital left-sided inferior vena cava noted. Musculoskeletal structures are intact and without acute osseous abnormality. IMPRESSION: 1. No acute abdominopelvic pathology appreciated. 2. Hepatosplenomegaly with patent umbilical vein suggesting cirrhosis and portal hypertension. 3. Diverticulosis without acute diverticulitis. 4. Atrophic appearance to the right kidney and 3 cm left renal hypodensity likely representing cyst. 5. Congenital left-sided inferior vena cava. <Electronically signed by Joshua Escalante > 01/06/21 0927
[2021-01-06 09:48] LABS: BASO % 0.3 % (0.0-1.0); EOS # 0.1 10^3/uL (0.0-0.5); EOS % 1.4 % (0.0-3.0); HEMOGLOBIN 9.6 g/dl (12.0-15.5); LYMPH # 0.7 10^3/uL (1.5-5.0); LYMPH % 19.3 % (24.0-44.0); MEAN CORPUSCULAR HEMOGLOBIN 34.3 pg (27.0-33.0); MEAN CORPUSCULAR HGB CONC 33.1 g/dl (32.0-36.5); MEAN CORPUSCULAR VOLUME 103.6 fl (80.0-96.0); MONO # 0.4 10^3/uL (0.0-0.8); MONO % 11.4 % (2.0-8.0); NEUTROPHILS # 2.4 10^3/uL (1.5-8.5); NEUTROPHILS % 67.3 % (36.0-66.0); WHITE BLOOD COUNT 3.5 10^3/uL (4.0-10.0)
[2021-01-06 10:10] LABS: PLATELET COUNT, AUTOMATED 71 10^3/uL (150-450)
[2021-01-06 11:05] LABS: ALBUMIN 3.3 GM/DL (3.2-5.2); BILIRUBIN,DIRECT 0.2 MG/DL (0.0-0.2); BILIRUBIN,TOTAL 0.9 MG/DL (0.2-1.0); TOTAL PROTEIN 7.1 GM/DL (6.4-8.2)
[2021-01-06 13:45] VITALS: BP 142/66
--- NOTE | 2021-01-06 14:52 | ED PDOC ---
Post-Departure Follow-Up aisha lla faxed formal report of ct abd/p for fu Amy James MD Jan 06, 2021 14:52
== END 2021-01-06 13:46 | disposition home or self-care (01) ==
LOC: M ED 08:33
DX: D61.818 Other pancytopenia (principal); E11.9 Type 2 diabetes mellitus without complications; I48.91 Unspecified atrial fibrillation; E07.9 Disorder of thyroid, unspecified; K76.0 Fatty (change of) liver, not elsewhere classified; D46.9 Myelodysplastic syndrome, unspecified; Z88.8 Allergy status to other drugs, medicaments and biological substances; Z91.048 Other nonmedicinal substance allergy status; Z87.891 Personal history of nicotine dependence; Z79.899 Other long term (current) drug therapy; Z79.890 Hormone replacement therapy

== ENCOUNTER → 2021-02-04 | Outpatient (REF) | payer MEDICARE, MEDICAID | LOC: M LAB REF 13:57 | PROVIDERS: ATTEND Physician Assistant | DX: C44.529 Squamous cell carcinoma of skin of other part of trunk (principal) ==

== ENCOUNTER → 2021-02-16 | Outpatient (REF) | payer MEDICARE, MEDICAID | LOC: M LAB REF 16:50 | PROVIDERS: ATTEND Nurse Practitioner Family | DX: E83.42 Hypomagnesemia (principal) ==

== ENCOUNTER → 2021-02-16 | Outpatient (REF) | payer MEDICARE, MEDICAID ==
[2021-02-16 17:55] LABS: ALBUMIN 3.6 GM/DL (3.2-5.2); CALCIUM LEVEL 8.3 MG/DL (8.8-10.2); CREATININE FOR GFR 2.36 MG/DL (0.55-1.30); FREE T4 1.31 NG/DL (0.76-1.46); GLOMERULAR FILTRATION RATE 21.7 (>45); POTASSIUM SERUM 4.6 MEQ/L (3.5-5.1); THYROID STIMULATING HORMONE 1.08 uIU/ML (0.358-3.740); TOTAL PROTEIN 7.3 GM/DL (6.4-8.2)
[2021-02-16 18:21] LABS: HEMOGLOBIN A1c 5.7 %
== END ==
LOC: M SFHCPLAZ 16:48
PROVIDERS: ATTEND Family Medicine
DX: K74.60 Unspecified cirrhosis of liver (principal); E07.9 Disorder of thyroid, unspecified; E83.42 Hypomagnesemia; Z79.899 Other long term (current) drug therapy

== ENCOUNTER → 2021-05-05 | Outpatient (CLI) | payer MEDICARE, MEDICAID ==
[2021-05-05 11:14] LABS: HEMOGLOBIN A1c 6.4 %
[2021-05-05 11:40] LABS: ALBUMIN 3.4 GM/DL (3.2-5.2); BILIRUBIN,TOTAL 0.8 MG/DL (0.2-1.0); CALCIUM LEVEL 9.6 MG/DL (8.8-10.2); CHOLESTEROL RISK RATIO 2.358 (<5); CREATININE FOR GFR 2.45 MG/DL (0.55-1.30); FREE T4 1.34 NG/DL (0.76-1.46); GLOMERULAR FILTRATION RATE 20.8 (>45); POTASSIUM SERUM 4.9 MEQ/L (3.5-5.1); THYROID STIMULATING HORMONE 1.58 uIU/ML (0.358-3.740)
== END ==
LOC: M PLALAB 08:02
PROVIDERS: ATTEND Nurse Practitioner Family
DX: E11.22 Type 2 diabetes mellitus with diabetic chronic kidney disease (principal); E78.2 Mixed hyperlipidemia; N18.9 Chronic kidney disease, unspecified

== ENCOUNTER → 2021-05-20 | Outpatient (REF) | payer MEDICARE, MEDICAID | LOC: M LAB REF 15:56 | PROVIDERS: ATTEND Dermatology | DX: C44.529 Squamous cell carcinoma of skin of other part of trunk (principal); L90.5 Scar conditions and fibrosis of skin ==

== ENCOUNTER → 2021-06-10 | Outpatient (CLI) | payer MEDICARE, MEDICAID ==
[~2021-06-10] MED LIST changes: +ONETAB35 PO
== END ==
LOC: M LABSMTC 11:18
PROVIDERS: ATTEND Anesthesiology
DX: Z01.812 Encounter for preprocedural laboratory examination (principal); Z20.822 Contact with and (suspected) exposure to COVID-19

== ENCOUNTER 2021-06-15 09:20 | Day surgery (SDC) | payer MEDICARE, MEDICAID ==
[~2021-06-15] VITALS: Ht 160 cm; Wt 121.2 kg
[~2021-06-15 09:20] MED LIST changes: +NS 1,000 ML IV ONE
[2021-06-15] MEDS ORDERED: LIDOCAINE 2% 100MG/5ML SDV (FOR ANES.) As Ordered ONE (11:00)
[2021-06-15] MEDS ORDERED: propofoL 200 MG/20 ML VIAL As Ordered ONE ×3 (11:00→12:10)
--- NOTE | 2021-06-15 11:39 | ROOR ---
Patient Name: Yandy Rodriguez Procedure Date: 06/15/2021 11:14 AM Date of : 1950 Age: 70 Room: [facility] Gender: Female Note Status: Finalized Procedure: Upper Endoscopy + Biopsies Indications: Heartburn, Exclusion of Nuñez's esophagus Providers: Medhat Campbell MD Referring MD: Gisele Bruno NP Requesting Provider: Medicines: Monitored Anesthesia Care Complications: No immediate complications. Procedure: Pre-Anesthesia Assessment: - The heart rate, respiratory rate, oxygen saturations, blood pressure, adequacy of pulmonary ventilation, and response to care were monitored throughout the procedure. The Endoscope was introduced through the mouth, and advanced to the second part of duodenum. The upper GI endoscopy was accomplished without difficulty. The patient tolerated the procedure well. Findings: The Z-line was variable and was found 35 cm from the incisors. Multiple biopsies were obtained with cold forceps for evaluation to rule out Nuñez's Esophagus randomly at the gastroesophageal junction. A small hiatal hernia was present. No other significant abnormalities were identified in a careful examination of the stomach. The exam of the duodenum was otherwise normal. Impression: - Z-line variable, 35 cm from the incisors. - Small hiatal hernia. - Multiple biopsies were obtained at the gastroesophageal junction. - The examination was otherwise normal. Recommendation: - Patient has a contact number available for emergencies. The signs and symptoms of potential delayed complications were discussed with the patient. Return to normal activities tomorrow. Written discharge instructions were provided to the patient. - High fiber diet. - Discharge patient to home. - Follow an antireflux regimen. - Continue present medications. - Await pathology results. - Telephone GI clinic for pathology results in 1 week. - Return to referring physician. - The findings and recommendations were discussed with the patient. Procedure Code(s): --- Professional --- 19446, Esophagogastroduodenoscopy, flexible, transoral; with biopsy, single or multiple Diagnosis Code(s): --- Professional --- K22.8, Other specified diseases of esophagus K44.9, Diaphragmatic hernia without obstruction or gangrene R12, Heartburn CPT copyright 2019 [employer]. All rights reserved. The codes documented in this report are preliminary and upon wirer helper review may be revised to meet current compliance requirements. Medhat Campbell MD Medhat Campbell MD 06/15/2021 11:39:08 AM Electronically signed by Medhat Campbell MD Number of Addenda: 0 Note Initiated On: 06/15/2021 11:14 AM Estimated Blood Loss: Estimated blood loss: none.
--- NOTE | 2021-06-15 12:12 | ROOR ---
Patient Name: Yandy Rodriguez Procedure Date: 06/15/2021 11:15 AM Date of : 1950 Age: 70 Room: [facility] Gender: Female Note Status: Finalized Procedure: Total Colonoscopy to Cecum + Cold Snare Polypectomy + Hemoclips Indications: High risk colon cancer surveillance: Personal history of colonic polyps, Last colonoscopy: 2015 Providers: Medhat Campbell MD Referring MD: Gisele Bruno NP Requesting Provider: Medicines: Monitored Anesthesia Care Complications: No immediate complications. Procedure: Pre-Anesthesia Assessment: - The heart rate, respiratory rate, oxygen saturations, blood pressure, adequacy of pulmonary ventilation, and response to care were monitored throughout the procedure. The Colonoscope was introduced through the anus and advanced to the cecum, identified by appendiceal orifice and ileocecal valve. The colonoscopy was performed without difficulty. The patient tolerated the procedure well. The quality of the bowel preparation was excellent. Findings: The perianal and digital rectal examinations were normal. Non-bleeding internal hemorrhoids were found during retroflexion. The hemorrhoids were small and Grade I (internal hemorrhoids that do not prolapse). Multiple small and large-mouthed diverticula were found in the recto-sigmoid colon, sigmoid colon and descending colon. Two carpet-like polyps were found in the cecum. The polyps were large in size. These polyps were removed with a cold snare. Resection and retrieval were complete. To prevent bleeding after the polypectomy, four hemostatic clips were successfully placed. There was no bleeding at the end of the procedure. The exam was otherwise without abnormality on direct and retroflexion views. Impression: - Non-bleeding internal hemorrhoids. - Diverticulosis in the recto-sigmoid colon, in the sigmoid colon and in the descending colon. - Two large polyps in the cecum, removed with a cold snare. Resected and retrieved. Clips were placed. - The examination was otherwise normal on direct and retroflexion views. - The exam was otherwise normal to the cecum. Recommendation: - Patient has a contact number available for emergencies. The signs and symptoms of potential delayed complications were discussed with the patient. Return to normal activities tomorrow. Written discharge instructions were provided to the patient. - High fiber diet. - Discharge patient to home. - Continue present medications. - Await pathology results. - Telephone GI clinic for pathology results in 1 week. - Repeat colonoscopy in 1 year for surveillance based on pathology results. - Return to referring physician. - The findings and recommendations were discussed with the patient. Procedure Code(s): --- Professional --- 98985, Colonoscopy, flexible; with removal of tumor(s), polyp(s), or other lesion(s) by snare technique Diagnosis Code(s): --- Professional --- Z86.010, Personal history of colonic polyps K64.0, First degree hemorrhoids K63.5, Polyp of colon K57.30, Diverticulosis of large intestine without perforation or abscess without bleeding CPT copyright 2019 [employer]. All rights reserved. The codes documented in this report are preliminary and upon radiological metallurgist review may be revised to meet current compliance requirements. Medhat Campbell MD Medhat Campbell MD 06/15/2021 12:11:41 PM Electronically signed by Medhat Campbell MD Number of Addenda: 0 Note Initiated On: 06/15/2021 11:15 AM Estimated Blood Loss: Estimated blood loss: none.
[2021-06-15 12:30] VITALS: BP 160/70
== END 2021-06-15 12:50 | disposition home or self-care (01) ==
LOC: M OPP 09:20
PROVIDERS: ATTEND Internal Medicine Gastroenterology
DX: R12 Heartburn (principal); K44.9 Diaphragmatic hernia without obstruction or gangrene; K22.89 Other specified disease of esophagus; D12.0 Benign neoplasm of cecum; K57.30 Diverticulosis of large intestine without perforation or abscess without bleeding; K64.0 First degree hemorrhoids; Z86.010 Personal history of colon polyps

== ENCOUNTER 2021-12-09 21:33 | Emergency (ER) | payer MEDICARE, MEDICAID ==
[~2021-12-09] VITALS: Ht 160 cm; Wt 129.6 kg
[~2021-12-09 21:33] MED LIST changes: -NS 1,000 ML IV ONE
[2021-12-09] MEDS ORDERED: NS 1,000 ML IV ONE (22:15)
[2021-12-09 22:46] LABS: BASO % 0.5 % (0.0-1.0); EOS # 0.1 10^3/uL (0.0-0.5); EOS % 2.2 % (0.0-3.0); HEMATOCRIT 27.3 % (36.0-47.0); HEMOGLOBIN 9.1 g/dl (12.0-15.5); LYMPH # 0.8 10^3/uL (1.5-5.0); LYMPH % 18.3 % (24.0-44.0); MEAN CORPUSCULAR HEMOGLOBIN 35.8 pg (27.0-33.0); MEAN CORPUSCULAR HGB CONC 33.3 g/dl (32.0-36.5); MEAN CORPUSCULAR VOLUME 107.5 fl (80.0-96.0); MONO # 0.4 10^3/uL (0.0-0.8); MONO % 10.2 % (2.0-8.0); NEUTROPHILS # 2.8 10^3/uL (1.5-8.5); NEUTROPHILS % 68.6 % (36.0-66.0); RED BLOOD COUNT 2.54 10^6/uL (4.00-5.40); WHITE BLOOD COUNT 4.1 10^3/uL (4.0-10.0)
[2021-12-09 22:49] LABS: PLATELET COUNT, AUTOMATED 94 10^3/uL (150-450)
[2021-12-09] MEDS ORDERED: diazePAM 10MG/2ML SYRINGE (J3360 PER 5MG) IV ONE (22:55)
[2021-12-09 23:11] LABS: ALBUMIN 3.5 GM/DL (3.2-5.2); BILIRUBIN,TOTAL 0.9 MG/DL (0.2-1.0); CALCIUM LEVEL 8.9 MG/DL (8.8-10.2); CREATININE FOR GFR 3.1 MG/DL (0.55-1.30); GLOMERULAR FILTRATION RATE 15.8 (>39); POTASSIUM SERUM 4.4 MEQ/L (3.5-5.1)
[2021-12-09 23:40] LABS: RSV AMPLIFICATION NEGATIVE (NEGATIVE)
[2021-12-10 02:39] VITALS: BP 152/78
== END 2021-12-10 02:40 | disposition home or self-care (01) ==
LOC: EDBD 21:33 → M ED 21:33
DX: U07.1 COVID-19 (principal); E86.0 Dehydration; R10.9 Unspecified abdominal pain; E11.9 Type 2 diabetes mellitus without complications; E78.5 Hyperlipidemia, unspecified; K21.9 Gastro-esophageal reflux disease without esophagitis; G47.33 Obstructive sleep apnea (adult) (pediatric); E03.9 Hypothyroidism, unspecified; Z79.01 Long term (current) use of anticoagulants; Z79.899 Other long term (current) drug therapy; Z88.8 Allergy status to other drugs, medicaments and biological substances; Z91.89 Other specified personal risk factors, not elsewhere classified
CPT/HCPCS: 74176; 80053; 81001; 83605; 83690; 85025; 85049; 85055; 87631; 96361; 96374; 99285; G0463; J3360

== ENCOUNTER 2021-12-12 16:59 | Emergency (ER) | payer MEDICARE, MEDICAID ==
[~2021-12-12] VITALS: Ht 160 cm; Wt 129.6 kg
[2021-12-12 17:14] VITALS: BP 183/79
[2021-12-12] MEDS ORDERED: ACETAMINOPHEN 500 MG TAB PO ONE (18:45)
== END 2021-12-12 19:32 | disposition left against medical advice (07) ==
LOC: M ED 16:59
DX: Z53.21 Procedure and treatment not carried out due to patient leaving prior to being seen by health care provider (principal)

== ENCOUNTER → 2022-01-04 | Outpatient (CLI) | payer MEDICARE, MEDICAID ==
[2022-01-04 11:25] LABS: FREE T4 1.27 NG/DL (0.76-1.46); THYROID STIMULATING HORMONE 1.43 uIU/ML (0.358-3.740)
== END ==
LOC: M PLAIMG 07:53
PROVIDERS: ATTEND Physician Assistant
DX: R93.89 Abnormal findings on diagnostic imaging of other specified body structures (principal); E03.9 Hypothyroidism, unspecified

== ENCOUNTER → 2022-01-04 | Outpatient (CLI) | payer MEDICARE, MEDICAID | LOC: M WHC 07:13 | PROVIDERS: ATTEND Physician Assistant | DX: R10.11 Right upper quadrant pain (principal); N28.1 Cyst of kidney, acquired; R16.1 Splenomegaly, not elsewhere classified; N20.0 Calculus of kidney; K76.0 Fatty (change of) liver, not elsewhere classified; R93.89 Abnormal findings on diagnostic imaging of other specified body structures; E03.9 Hypothyroidism, unspecified ==

== ENCOUNTER → 2022-02-08 | Outpatient (CLI) | payer MEDICARE, MEDICAID | LOC: M WHC 10:23 | PROVIDERS: ATTEND Physician Assistant | DX: Z12.31 Encounter for screening mammogram for malignant neoplasm of breast (principal) ==

== ENCOUNTER → 2022-03-15 | Outpatient (CLI) | payer MEDICARE, MEDICAID | LOC: M WHC 07:59 | PROVIDERS: ATTEND Specialist | DX: M85.88 Other specified disorders of bone density and structure, other site (principal) ==

== ENCOUNTER → 2022-06-28 | Outpatient (REF) | payer MEDICARE, MEDICAID ==
[~2022-06-28] MED LIST changes: +CALC1CAP31
[2022-06-28 09:57] LABS: CHOLESTEROL RISK RATIO 3.06 (<5); HDL CHOLESTEROL 37.8 MG/DL (>40); LDL CHOLESTEROL 48.6 MG/DL (<100)
== END ==
LOC: M LAB REF 09:19
PROVIDERS: ATTEND Physician Assistant
DX: E78.2 Mixed hyperlipidemia (principal)

== ENCOUNTER → 2022-12-21 | Outpatient (REF) | payer MEDICARE, MEDICAID ==
[~2022-12-21] MED LIST changes: +ACET1TAB37 PO; +AMLO1TAB24; +OPTI0.5D5 OP
[2022-12-21 18:11] LABS: HEMOGLOBIN A1c 5.6 % (4.0-6.0)
== END ==
LOC: M LAB REF 16:48
PROVIDERS: ATTEND Physician Assistant
DX: E11.22 Type 2 diabetes mellitus with diabetic chronic kidney disease (principal)

== ENCOUNTER 2023-01-22 07:58 | Day surgery (SDC) | payer MEDICARE, MEDICAID ==
[~2023-01-22] VITALS: Ht 160 cm; Wt 104.2 kg
[~2023-01-22 07:58] MED LIST changes: -AMLO1TAB24; +AMLO1TAB24 PO; +CINA30TA5 PO; +LIDOCAINE 2% 100MG/5ML SDV (FOR ANES.) As Ordered ONE; +NS 1,000 ML IV ONE; +ONDANSETRON 4MG 2ML VIAL As Ordered ONE; +PRES10CA2 PO; +VITATAB73 PO; +fentaNYL 100 MCG/2 ML INJECTION As Ordered ONE; +propofoL 200 MG/20 ML VIAL As Ordered ONE
[2023-01-22] MEDS ORDERED: propofoL 200 MG/20 ML VIAL As Ordered ONE (10:17)
[2023-01-22 10:35] VITALS: TEMP 97.2
[2023-01-22 11:25] VITALS: BP 142/64; O2SAT 100
== END 2023-01-22 14:48 | disposition home or self-care (01) ==
LOC: M OPP 07:58
PROVIDERS: ATTEND Internal Medicine Gastroenterology
DX: Z86.010 Personal history of colon polyps (principal); D12.0 Benign neoplasm of cecum; D12.2 Benign neoplasm of ascending colon; K64.0 First degree hemorrhoids; K57.30 Diverticulosis of large intestine without perforation or abscess without bleeding; K22.89 Other specified disease of esophagus; K22.70 Barrett's esophagus without dysplasia; K44.9 Diaphragmatic hernia without obstruction or gangrene; R12 Heartburn; Z79.01 Long term (current) use of anticoagulants; Z79.02 Long term (current) use of antithrombotics/antiplatelets; Z79.84 Long term (current) use of oral hypoglycemic drugs; Z79.890 Hormone replacement therapy; Z79.899 Other long term (current) drug therapy; Z88.8 Allergy status to other drugs, medicaments and biological substances; Z91.048 Other nonmedicinal substance allergy status
CPT/HCPCS: 43239; 45385; 88305; J2405; J3010

== ENCOUNTER → 2023-03-20 | Outpatient (CLI) | payer MEDICARE, MEDICAID ==
[~2023-03-20] MED LIST changes: -LIDOCAINE 2% 100MG/5ML SDV (FOR ANES.) As Ordered ONE; -NS 1,000 ML IV ONE; -ONDANSETRON 4MG 2ML VIAL As Ordered ONE; -fentaNYL 100 MCG/2 ML INJECTION As Ordered ONE; -propofoL 200 MG/20 ML VIAL As Ordered ONE
== END ==
LOC: M PLAIMG 08:31
PROVIDERS: ATTEND Physician Assistant
DX: M51.37 Other intervertebral disc degeneration, lumbosacral region (principal); M54.41 Lumbago with sciatica, right side; M53.3 Sacrococcygeal disorders, not elsewhere classified; W19.XXXA Unspecified fall, initial encounter

== ENCOUNTER → 2023-03-21 | Outpatient (REF) | payer MEDICARE, MEDICAID ==
[2023-03-21 09:44] LABS: HEMOGLOBIN A1c 5.7 % (4.0-6.0)
[2023-03-21 09:51] LABS: CHOLESTEROL RISK RATIO 2.94 (<5); HDL CHOLESTEROL 48.6 MG/DL (>40); LDL CHOLESTEROL 62.6 MG/DL (<100); NON-HDL-C 94.4 MG/DL
[2023-03-21 09:53] LABS: FREE T4 1.62 NG/DL (0.89-1.76); THYROID STIMULATING HORMONE 0.547 uIU/ML (0.55-4.78)
== END ==
LOC: M LAB REF 08:53
PROVIDERS: ATTEND Physician Assistant
DX: E03.9 Hypothyroidism, unspecified (principal); E11.22 Type 2 diabetes mellitus with diabetic chronic kidney disease; E55.9 Vitamin D deficiency, unspecified; E78.2 Mixed hyperlipidemia

== ENCOUNTER → 2023-03-27 | Outpatient (CLI) | payer MEDICARE, MEDICAID | LOC: M WHC 06:38 | PROVIDERS: ATTEND Physician Assistant | DX: Z12.31 Encounter for screening mammogram for malignant neoplasm of breast (principal); Z85.3 Personal history of malignant neoplasm of breast ==

== ENCOUNTER → 2023-11-29 | Outpatient (CLI) | payer MEDICARE, MEDICAID ==
[~2023-11-29] MED LIST changes: +HYDR-4571; +OPTI0.5D2 OP; -OPTI0.5D5 OP; +PANT20TA6
== END ==
LOC: M PLAIMG 14:27
PROVIDERS: ATTEND Physician Assistant
DX: I35.2 Nonrheumatic aortic (valve) stenosis with insufficiency (principal)

== ENCOUNTER 2023-12-18 05:02 | Emergency (ER) | payer MEDICARE, MEDICAID ==
[~2023-12-18] VITALS: Ht 160 cm; Wt 102.2 kg
[~2023-12-18 05:02] MED LIST changes: -GLIM1TAB4 PO; +GLIM1TAB84 PO
[2023-12-18 05:17] VITALS: TEMP 98
[2023-12-18 05:57] LABS: BASO % 0.3 % (0.0-1.0); EOS # 0.1 10^3/uL (0.0-0.5); EOS % 1.7 % (0.0-3.0); HEMATOCRIT 32.2 % (36.0-47.0); HEMOGLOBIN 10.8 g/dl (12.0-15.5); LYMPH # 0.6 10^3/uL (1.5-5.0); LYMPH % 19.8 % (24.0-44.0); MEAN CORPUSCULAR HEMOGLOBIN 33.4 pg (27.0-33.0); MEAN CORPUSCULAR HGB CONC 33.5 g/dl (32.0-36.5); MEAN CORPUSCULAR VOLUME 99.7 fl (80.0-96.0); MONO # 0.3 10^3/uL (0.0-0.8); MONO % 8.5 % (2.0-8.0); NEUTROPHILS % 69.4 % (36.0-66.0); RED BLOOD COUNT 3.23 10^6/uL (4.00-5.40); WHITE BLOOD COUNT 2.9 10^3/uL (4.0-10.0)
[2023-12-18] MEDS: ONDANSETRON 4MG 2ML VIAL IV ONE (06:01)
[2023-12-18] MEDS: PANTOPRAZOLE 40MG VIAL IV ONE (06:01)
[2023-12-18 06:04] LABS: CK-MB VALUE MASS 1.4 NG/ML (<3.6)
[2023-12-18 06:05] LABS: ALBUMIN 3.7 G/DL (3.2-5.2); BILIRUBIN,DIRECT 0.2 MG/DL (<0.4); BILIRUBIN,TOTAL 0.7 MG/DL (0.3-1.2); TOTAL PROTEIN 7.2 G/DL (5.7-8.2)
[2023-12-18 06:08] LABS: MB/CK RELATIVE INDEX 1.09 (< OR =4); THYROID STIMULATING HORMONE 0.861 uIU/ML (0.55-4.78)
[2023-12-18 06:34] LABS: PLATELET COUNT, AUTOMATED 99 10^3/uL (150-450)
[2023-12-18 08:25] LABS: CK-MB VALUE MASS 2.2 NG/ML (<3.6)
[2023-12-18 08:27] LABS: MB/CK RELATIVE INDEX 2.17 (< OR =4)
[2023-12-18 08:45] LABS: CALCIUM LEVEL 8.4 MG/DL (8.3-10.6); CREATININE FOR GFR 2.69 MG/DL (0.55-1.30); GLOMERULAR FILTRATION RATE 18.5 (>39); POTASSIUM SERUM 4.2 MMOL/L (3.5-5.1)
[2023-12-18 09:02] VITALS: O2SAT 100
[2023-12-18 09:10] VITALS: BP 148/63
== END 2023-12-18 09:17 | disposition home or self-care (01) ==
LOC: M ED 05:02
DX: K29.70 Gastritis, unspecified, without bleeding (principal); R07.89 Other chest pain; I12.9 Hypertensive chronic kidney disease with stage 1 through stage 4 chronic kidney disease, or unspecified chronic kidney disease; K21.9 Gastro-esophageal reflux disease without esophagitis; K22.70 Barrett's esophagus without dysplasia; E78.5 Hyperlipidemia, unspecified; Z85.3 Personal history of malignant neoplasm of breast; Z87.442 Personal history of urinary calculi; D61.818 Other pancytopenia; Z98.61 Coronary angioplasty status; Z79.899 Other long term (current) drug therapy; Z88.8 Allergy status to other drugs, medicaments and biological substances; Z91.89 Other specified personal risk factors, not elsewhere classified
CPT/HCPCS: 71045; 80048; 80076; 82550; 82553; 83690; 83880; 84443; 84484; 85025; 85049; 85055; 93005; 93041; 94760; 96374; 96375; 99285; C9113; J2405

== ENCOUNTER → 2024-01-03 | Outpatient (CLI) | payer MEDICARE, MEDICAID ==
[2024-01-03 15:01] LABS: CHOLESTEROL RISK RATIO 3.05 (<5); LDL CHOLESTEROL 66.4 MG/DL (<100)
[2024-01-03 15:02] LABS: THYROID STIMULATING HORMONE 0.986 uIU/ML (0.55-4.78)
[2024-01-03 15:03] LABS: TOTAL 25(OH) VITAMIN D 50.4 NG/ML (20.0-100.0)
[2024-01-03 15:04] LABS: FREE T4 1.57 NG/DL (0.89-1.76)
[2024-01-03 15:19] LABS: HEMOGLOBIN A1c 5.1 % (4.0-6.0)
== END ==
LOC: M PLALAB 10:27
PROVIDERS: ATTEND Physician Assistant
DX: E11.22 Type 2 diabetes mellitus with diabetic chronic kidney disease (principal); E55.9 Vitamin D deficiency, unspecified; E03.9 Hypothyroidism, unspecified; E78.2 Mixed hyperlipidemia; D63.1 Anemia in chronic kidney disease

== ENCOUNTER → 2024-04-10 | Outpatient (CLI) | payer MEDICARE, MEDICAID | LOC: M WHC 08:25 | PROVIDERS: ATTEND Nurse Practitioner Family | DX: N18.4 Chronic kidney disease, stage 4 (severe) (principal); R33.9 Retention of urine, unspecified; N26.1 Atrophy of kidney (terminal); N28.1 Cyst of kidney, acquired; N20.0 Calculus of kidney ==

== ENCOUNTER → 2024-05-06 | Outpatient (CLI) | payer MEDICARE, MEDICAID | LOC: M WHC 12:19 | PROVIDERS: ATTEND Dietitian, Registered | DX: Z12.31 Encounter for screening mammogram for malignant neoplasm of breast (principal); Z85.3 Personal history of malignant neoplasm of breast; Z79.899 Other long term (current) drug therapy; M85.88 Other specified disorders of bone density and structure, other site; R92.313 Mammographic fatty tissue density, bilateral breasts ==

== ENCOUNTER → 2024-05-06 | Outpatient (CLI) | payer MEDICARE, MEDICAID | LOC: M WHC 11:52 | PROVIDERS: ATTEND Physician Assistant | DX: Z12.31 Encounter for screening mammogram for malignant neoplasm of breast (principal) ==

== ENCOUNTER → 2024-08-13 | Outpatient (CLI) | payer MEDICARE, MEDICAID ==
[~2024-08-13] MED LIST changes: +OXYB5TAB14; +VITA500045 PO
== END ==
LOC: M PLAIMG 12:28
PROVIDERS: ATTEND Student in an Organized Health Care Education/Training Program
DX: R04.2 Hemoptysis (principal)

== ENCOUNTER → 2024-08-20 | Outpatient (REF) | payer MEDICARE, MEDICAID ==
[2024-08-20 11:10] LABS: ALBUMIN 3.6 G/DL (3.2-5.2); BILIRUBIN,TOTAL 0.8 MG/DL (0.3-1.2); CALCIUM LEVEL 9.4 MG/DL (8.3-10.6); CHOLESTEROL RISK RATIO 2.71 (<5); CREATININE FOR GFR 2.88 MG/DL (0.55-1.30); GLOMERULAR FILTRATION RATE 17.1 (>39); HDL CHOLESTEROL 59.2 MG/DL (>40); LDL CHOLESTEROL 78.4 MG/DL (<100); NON-HDL-C 101.8 MG/DL; POTASSIUM SERUM 4.2 MMOL/L (3.5-5.1); TOTAL PROTEIN 7.5 G/DL (5.7-8.2)
[2024-08-20 11:11] LABS: THYROID STIMULATING HORMONE 2.19 uIU/ML (0.55-4.78)
[2024-08-20 11:12] LABS: FREE T4 1.4 NG/DL (0.89-1.76)
[2024-08-20 11:14] LABS: BASO % 0.4 % (0.0-1.0); EOS # 0.1 10^3/uL (0.0-0.5); EOS % 3.9 % (0.0-3.0); HEMATOCRIT 28.4 % (36.0-47.0); HEMOGLOBIN 9.2 g/dl (12.0-15.5); LYMPH # 0.5 10^3/uL (1.5-5.0); LYMPH % 16.4 % (24.0-44.0); MEAN CORPUSCULAR HEMOGLOBIN 33.7 pg (27.0-33.0); MEAN CORPUSCULAR HGB CONC 32.4 g/dl (32.0-36.5); MONO # 0.2 10^3/uL (0.0-0.8); MONO % 7.1 % (2.0-8.0); NEUTROPHILS % 71.8 % (36.0-66.0); RED BLOOD COUNT 2.73 10^6/uL (4.00-5.40); WHITE BLOOD COUNT 2.8 10^3/uL (4.0-10.0)
[2024-08-20 11:21] LABS: PLATELET COUNT, AUTOMATED 83 10^3/uL (150-450)
[2024-08-20 11:40] LABS: CREATININE, URINE 54.8 MG/DL; MAU/CREAT RATIO 189.7 MCG/MG (0.0-30.0)
== END ==
LOC: M LAB REF 10:04
PROVIDERS: ATTEND Student in an Organized Health Care Education/Training Program
DX: E11.9 Type 2 diabetes mellitus without complications (principal); N18.4 Chronic kidney disease, stage 4 (severe); M17.10 Unilateral primary osteoarthritis, unspecified knee; E03.9 Hypothyroidism, unspecified; Z76.89 Persons encountering health services in other specified circumstances

== ENCOUNTER → 2024-10-07 | Outpatient (CLI) | payer MEDICARE, MEDICAID | LOC: M PLAIMG 09:25 | PROVIDERS: ATTEND Physician Assistant | DX: Z01.818 Encounter for other preprocedural examination (principal); M17.11 Unilateral primary osteoarthritis, right knee ==

== ENCOUNTER → 2024-12-01 | Outpatient (CLI) | payer MEDICARE, MEDICAID ==
[~2024-12-01] MED LIST changes: +VITA1CAP25
== END ==
LOC: M PLAIMG 10:31
PROVIDERS: ATTEND Physician Assistant
DX: I08.3 Combined rheumatic disorders of mitral, aortic and tricuspid valves (principal)

== ENCOUNTER → 2025-02-18 | Outpatient (POV) | payer MEDICARE, MEDICAID ==
[~2025-02-18] VITALS: Ht 160 cm; Wt 99.1 kg
[~2025-02-18] MED LIST changes: -HYDR-4571; +HYDR-4571 PO; -OPTI0.5D2 OP; +OPTI0.5D2 OU; -OXYB5TAB14; +OXYB5TAB14 PO; -PANT20TA6; +PANT20TA6 PO; -VITA1CAP25; +VITA1CAP25 PO
[2025-02-18 10:45] VITALS: O2SAT 100
== END ==
LOC: M IRPOV 10:12
PROVIDERS: ATTEND Registered Nurse School
DX: Z45.2 Encounter for adjustment and management of vascular access device (principal); Z88.8 Allergy status to other drugs, medicaments and biological substances; Z91.048 Other nonmedicinal substance allergy status

== ENCOUNTER → 2025-02-26 | Outpatient (CLI) | payer MEDICARE, MEDICAID | LOC: M RAD 11:15 | PROVIDERS: ATTEND Radiology Diagnostic Radiology | DX: T82.858A Stenosis of other vascular prosthetic devices, implants and grafts, initial encounter (principal); Y83.1 Surgical operation with implant of artificial internal device as the cause of abnormal reaction of the patient, or of later complication, without mention of misadventure at the time of the procedure; T82.898A Other specified complication of vascular prosthetic devices, implants and grafts, initial encounter ==

== ENCOUNTER → 2025-03-04 | Outpatient (POV) | payer MEDICARE, MEDICAID ==
[~2025-03-04] VITALS: Ht 162.6 cm; Wt 99.1 kg
[~2025-03-04] MED LIST changes: +ACET-1592 PO; -ACET1TAB37 PO
[2025-03-04 11:20] VITALS: O2SAT 100
== END ==
LOC: M IRPOV 10:28
PROVIDERS: ATTEND Radiology Diagnostic Radiology
DX: Z45.2 Encounter for adjustment and management of vascular access device (principal); N18.6 End stage renal disease; I70.0 Atherosclerosis of aorta; Z88.8 Allergy status to other drugs, medicaments and biological substances; Z91.048 Other nonmedicinal substance allergy status

== ENCOUNTER → 2025-03-13 | Outpatient (REF) | payer MEDICARE, MEDICAID ==
[2025-03-13 17:52] LABS: CREATININE, URINE 54.56 MG/DL
== END ==
LOC: M LAB REF 16:57
PROVIDERS: ATTEND Nurse Practitioner Family
DX: N18.5 Chronic kidney disease, stage 5 (principal)

== ENCOUNTER → 2025-03-23 | Outpatient (CLI) | payer MEDICARE, MEDICAID ==
[2025-03-23 07:20] VITALS: TEMP 97.1
[2025-03-23] MEDS: NS 250 ML IV SCH (07:25)
[2025-03-23 08:09] LABS: PLATELET COUNT, AUTOMATED 86 10^3/uL (150-450)
[2025-03-23 08:33] LABS: CALCIUM LEVEL 9.1 MG/DL (8.3-10.6); CARBON DIOXIDE LEVEL 28.0 MMOL/L (20-31); CHLORIDE LEVEL 102.0 MMOL/L (98-107); CREATININE FOR GFR 3.98 MG/DL (0.55-1.30); GLOMERULAR FILTRATION RATE 11.3 (>39); POTASSIUM SERUM 3.7 MMOL/L (3.5-5.1); SODIUM LEVEL 143.0 MMOL/L (136-145)
[2025-03-23] MEDS: MIDAZOLAM INJ 2 MG/2 ML VIAL IV PRN (08:34)
[2025-03-23 09:03] LABS: INR 1.04
[2025-03-23] MEDS: HEPARIN 1,000 UNITS/ML 10 ML VIAL (FOR RADIOLOGY & DIALYSIS ONLY) IV PRN (09:19)
[2025-03-23] MEDS: ISOVUE-300 61% 100 ML VIAL IV SCH (10:08)
[2025-03-23] MEDS: LIDOCAINE 1% MDV 20 ML VIAL SC SCH (10:08)
[2025-03-23 10:45] VITALS: BP 135/63; O2SAT 100
== END ==
LOC: M IRPRO 07:08
PROVIDERS: ATTEND Internal Medicine Nephrology
DX: T82.49XA Other complication of vascular dialysis catheter, initial encounter (principal); N18.6 End stage renal disease
CPT/HCPCS: 36902; 80048; 85027; 85049; 85055; 85610; 99152; 99153; C1769; C1887; J2250; J3010; Q9967

== ENCOUNTER 2025-04-01 07:41 | Emergency (ER) | payer MEDICARE, MEDICAID ==
[~2025-04-01] VITALS: Ht 175.3 cm; Wt 99.1 kg
[~2025-04-01 07:41] MED LIST changes: +ERGO125013 PO; -VITA500045 PO
[2025-04-01 07:53] VITALS: TEMP 97.6
[2025-04-01 08:21] LABS: BASO # 0.0 10^3/uL (0.0-0.2); BASO % 0.2 % (0.0-1.0); EOS # 0.0 10^3/uL (0.0-0.5); EOS % 0.5 % (0.0-3.0); LYMPH # 0.4 10^3/uL (1.5-5.0); LYMPH % 10.3 % (24.0-44.0); MONO # 0.4 10^3/uL (0.0-0.8); MONO % 8.6 % (2.0-8.0); NEUTROPHILS # 3.3 10^3/uL (1.5-8.5); NEUTROPHILS % 80.2 % (36.0-66.0)
[2025-04-01 08:23] LABS: PLATELET COUNT, AUTOMATED 72 10^3/uL (150-450)
[2025-04-01 08:49] LABS: ALT/SGPT 24.0 U/L (7.0-40); AST/SGOT 29.0 U/L (<34); CALCIUM LEVEL 9.9 MG/DL (8.3-10.6); CARBON DIOXIDE LEVEL 27.0 MMOL/L (20-31); CHLORIDE LEVEL 98.0 MMOL/L (98-107); CREATININE FOR GFR 3.88 MG/DL (0.55-1.30); GLOMERULAR FILTRATION RATE 11.7 (>39); POTASSIUM SERUM 4.3 MMOL/L (3.5-5.1); SODIUM LEVEL 138.0 MMOL/L (136-145)
[2025-04-01] MEDS ORDERED: VITA200028 PO (09:21)
[2025-04-01] MEDS ORDERED: KP F1200 PO (09:21)
[2025-04-01] MEDS ORDERED: HOME MED LIST COMPLETE! XX SCH (09:25)
[2025-04-01 09:29] LABS: KETONE, URINE AUTO RFX NEGATIVE (NEGATIVE); LEUKOCYTE ESTERASE UR AUTO RFX NEGATIVE (NEGATIVE); NITRITE, URINE AUTO RFX NEGATIVE (NEGATIVE); RBC, URINE AUTO RFX 1 /HPF (0-3); SQUAM EPITHELIAL CELL UR AURFX 0 /HPF (0-6); WBC, URINE AUTO RFX 0 /HPF (0-3)
[2025-04-01] MEDS: ONDANSETRON 4MG 2ML VIAL IV ONE (10:27)
[2025-04-01] MEDS: GASTROGRAFIN SOLUTION 30ML PO SCH (11:04)
[2025-04-01] MEDS ORDERED: ISOVUE-370 76% 100 ML VIAL As Ordered ONE (12:27)
[2025-04-01] MEDS ORDERED: APIXABAN 5 MG TAB PO ONE (13:55)
[2025-04-01 15:01] VITALS: BP 163/61; O2SAT 99
== END 2025-04-01 15:21 | disposition left against medical advice (07) ==
LOC: M ED 07:41 → EDBD 07:41 → M ED 15:21
DX: K80.20 Calculus of gallbladder without cholecystitis without obstruction (principal); N18.6 End stage renal disease; Z99.2 Dependence on renal dialysis; Z53.9 Procedure and treatment not carried out, unspecified reason; I11.0 Hypertensive heart disease with heart failure; K57.90 Diverticulosis of intestine, part unspecified, without perforation or abscess without bleeding; E78.5 Hyperlipidemia, unspecified; E66.9 Obesity, unspecified; Z87.442 Personal history of urinary calculi; K75.81 Nonalcoholic steatohepatitis (NASH); K74.69 Other cirrhosis of liver; Z85.3 Personal history of malignant neoplasm of breast; Z79.899 Other long term (current) drug therapy; Z88.8 Allergy status to other drugs, medicaments and biological substances; Z91.89 Other specified personal risk factors, not elsewhere classified
CPT/HCPCS: 74177; 80048; 80076; 81001; 83690; 85025; 85049; 85055; 93005; 96374; 96375; 99285; J2405; J3010; Q9963; Q9967

== ENCOUNTER → 2025-04-21 | Outpatient (CLI) | payer MEDICARE, MEDICAID ==
[~2025-04-21] MED LIST changes: +KP F1200 PO; +VITA200028 PO
[2025-04-21 09:35] VITALS: TEMP 97.3
[2025-04-21 09:55] LABS: BASO # 0.0 10^3/uL (0.0-0.2); BASO % 0.7 % (0.0-1.0); EOS # 0.1 10^3/uL (0.0-0.5); EOS % 2.1 % (0.0-3.0); LYMPH # 0.6 10^3/uL (1.5-5.0); LYMPH % 22.7 % (24.0-44.0); MONO # 0.2 10^3/uL (0.0-0.8); MONO % 8.5 % (2.0-8.0); NEUTROPHILS # 1.9 10^3/uL (1.5-8.5); NEUTROPHILS % 65.6 % (36.0-66.0); PLATELET COUNT, AUTOMATED 127 10^3/uL (150-450)
[2025-04-21 10:34] VITALS: BP 98/47; O2SAT 100
[2025-04-21] MEDS: LIDOCAINE 1% MDV 20 ML VIAL SC SCH (10:50)
== END ==
LOC: M IRPRO 09:26
PROVIDERS: ATTEND Specialist
DX: D61.818 Other pancytopenia (principal)

== ENCOUNTER 2025-04-30 06:23 | Outpatient (CLI) | payer MEDICARE, MEDICAID ==
[~2025-04-30] VITALS: Ht 154.9 cm; Wt 99.0 kg
[2025-04-30 07:55] VITALS: BP 107/54; TEMP 98.9; O2SAT 99
[2025-04-30] MEDS: ACETAMINOPHEN 650 MG PO ONE (08:00)
[2025-04-30 09:00] VITALS: BP 118/62; TEMP 97.7; O2SAT 97
[2025-04-30] MEDS ORDERED: NS (Normal Saline) 0.9% 250 ML IV ONE (09:00)
[2025-04-30 09:59] VITALS: BP 115/50; TEMP 98.7; O2SAT 98
== END 2025-04-30 10:25 | disposition home or self-care (01) ==
LOC: M INFU 06:23
PROVIDERS: ATTEND Specialist
DX: D64.9 Anemia, unspecified (principal); K92.2 Gastrointestinal hemorrhage, unspecified; D46.9 Myelodysplastic syndrome, unspecified; Z88.8 Allergy status to other drugs, medicaments and biological substances
CPT/HCPCS: 36430; P9016

== ENCOUNTER → 2025-06-01 | Outpatient (CLI) | payer MEDICARE, MEDICAID ==
[2025-06-01 09:33] VITALS: TEMP 97.7
[2025-06-01] MEDS: LIDOCAINE 1% MDV 20 ML VIAL SC SCH (10:21)
[2025-06-01 10:30] VITALS: BP 133/55; O2SAT 100
== END ==
LOC: M IRPRO 09:24
PROVIDERS: ATTEND Internal Medicine Nephrology
DX: N18.6 End stage renal disease (principal)

== ENCOUNTER → 2025-06-10 | Outpatient (REF) | payer MEDICARE, MEDICAID ==
[2025-06-10 19:09] LABS: CREATININE, URINE 48.86 MG/DL
== END ==
LOC: M LAB REF 16:57
PROVIDERS: ATTEND Nurse Practitioner Family
DX: N18.5 Chronic kidney disease, stage 5 (principal)